=== PATIENT | female | born 1995 | race Caucasian/White ===

== ENCOUNTER 2020-03-19 09:41 | Outpatient (CLI) | payer OTHER, SELFPAY ==
--- NOTE | ~2020-03-19 | US_ITS ---
EXAMINATION: US OB <=14 wk fetus w TV DATE: 03/19/2020 11:33 INDICATION: Encounter for . Positive test. TECHNIQUE: Real-time transabdominal and transvaginal obstetric ultrasound. FINDINGS: No prior studies for comparison. The uterus measures 5.8 x 4.1 x 5.4 cm. There is an intrauterine gestational sac, with pole francis ntified. The there is an intrauterine gestational sac measuring 0.22 cm corresponding to a 4 week 5 day gestation. No pole identified. Right ovary contains a 2.2 cm corpus luteal cyst. Left ovary is unremarkable. Small amount of free fluid in the pelvic cul-de-sac. IMPRESSION: 1. Intrauterine gestational sac corresponding to a 4 week 5 day gestation. pole not identified. Recommend follow-up with serial quantitative beta-hCG levels and ultrasound as clinically indicated. Reviewed, dictated and finalized at location A. IMPRESSION: 1. Intrauterine gestational sac corresponding to a 4 week 5 day gestation. Feta l pole not identified. Recommend follow-up with serial quantitative beta-hCG le vels and ultrasound as clinically indicated.
== END 2020-03-19 09:42 | disposition home or self-care (01) ==
PROVIDERS: PCP Nurse Practitioner Family; Visit Provider Nurse Practitioner Family
DX: Z32.01 Encounter for pregnancy test, result positive (principal)
CPT/HCPCS: 76801; 76817

== ENCOUNTER 2020-03-25 16:31 | Outpatient (CLI) | payer OTHER, SELFPAY | END 2020-03-25 16:32 | disposition home or self-care (01) | LOC: CHSLAB 16:32 | PROVIDERS: PCP Nurse Practitioner Family; Visit Provider Nurse Practitioner Family | DX: Z32.01 Encounter for pregnancy test, result positive (principal) | CPT/HCPCS: 36415; 84702 ==

== ENCOUNTER 2020-03-27 15:42 | Outpatient (CLI) | payer OTHER, SELFPAY | END 2020-03-27 15:43 | disposition home or self-care (01) | LOC: CHSLAB 15:45 | PROVIDERS: PCP Nurse Practitioner Family; Visit Provider Nurse Practitioner Family | DX: Z32.01 Encounter for pregnancy test, result positive (principal) | CPT/HCPCS: 36415; 84702 ==

== ENCOUNTER 2020-04-01 07:57 | Emergency (ER) | payer OTHER, SELFPAY ==
[2020-04-01 08:05] VITALS: BP 129/77; PULSE 82; RESP 20; O2SAT 98
--- NOTE | 2020-04-01 08:25 | ED.NAVMDI ---
HPI - Nausea/Vomiting/Diarrhea General Chief complaint: Nausea/Vomiting/Diarrhea Stated complaint: AND VOMITTING Time Seen by Provider: 04/01/20 08:25 Source: patient and RN notes reviewed Limitations: no limitations History of Present Illness MD elicited complaint: nausea and vomiting Onset (ago): day(s) (2) Description of vomiting: food contents Associated nausea: Yes Associated abdominal pain: No Relieving factors: none Context: other () Associated symptoms: denies other symptoms Related Data Allergies Allergy/AdvReac Type Severity Reaction Status Date / Time No Known Allergies Allergy Verified 03/18/20 11:40 Review of Systems Review of Systems: All systems reviewed & are unremarkable except as noted in HPI and below PMFSH Past Medical History Medical History ALBERTO (generalized anxiety disorder) Kidney stone 8 mm right nonobstructing stone Major depression, recurrent Obesity, Class I, BMI 30-34.9 Surgical History Surgical History deliv NOS-unsp Previous section (~07/2018) Family History Family History Mother Heart disease CHF Fibromyalgia Diabetes mellitus Peptic ulcer disease Social History Social History Smoking status: Never smoker Substance use: current Substance use type: marijuana Exam Const: General: healthy appearing, no acute distress and alert Nutritional Appearance: well nourished Orientation/consciousness: patient oriented x3 Other: Female nurse in room during examination. HENMT: Head: normal to inspection Ears: external ears normal Mouth: Yes moist mucous membranes Eyes: Pupils: Equal, round and reactive pupils present EOM: EOMs intact bilaterally Neck: Neck: normal visual inspection Resp: Effort & Inspection: normal respiratory effort Auscultation: clear to auscultation bilaterally Cardio: Rate: regular rate Rhythm: regular rhythm GI: GI Palp: Yes Soft to palpation and No Tenderness to palpation present (GI) Auscultation: normal bowel sounds Back/Spine/Pelvis: Cervical Spine: cervical ROM normal Thoracic/Lumbar Spine: thoraco-lumbar ROM normal Skin: General skin exam: normal color Rashes: no rashes Neuro: General: patient oriented x3 Speech: normal speech Gait exam (Neuro): Normal gait present Extrem: General: normal to inspection Psych: Appearance: grossly normal and well kempt Mental Status: mental status grossly normal Affect: normal affect Attitude: cooperative Thought content: Yes Normal thought content present Course Course Emergency Course: She feels better after her a L of normal saline. She is given some Zofran through her IV as well. Send her home on some oral Zofran p.r.n.. Follow up with her ux design lead. Vital Signs Vital signs: Vital Signs Pulse Rate 82 04/01/20 08:05 Respiratory Rate 20 04/01/20 08:05 Blood Pressure 129/77 04/01/20 08:05 Pulse Oximetry 98 04/01/20 08:05 Temperature 36.6 C 04/01/20 08:58 Pulse Rate 80 04/01/20 08:58 Respiratory Rate 20 04/01/20 08:58 Blood Pressure 129/77 04/01/20 08:58 Pulse Oximetry 98 04/01/20 08:58 MDM - Nausea/Vomiting/Diarrhea Differential Diagnosis Differential diagnosis: Likely food poisoning and gastroenteritis Medical Records Attestation: I reviewed the patient's medical records. Discharge Plan Discharge Clinical Impression: Hyperemesis arising during Patient Disposition: Home, Self-Care Condition: Stable Instructions: Nausea and Vomiting in (ED) Additional Instructions: Follow-up with your ux design lead in the next 3-5 days. Use Gatorade for all sport for rehydration. Small sips throughout the day. Prescriptions: New ondansetron HCl [Zofran] 4 mg tablet
[2020-04-01] MEDS: ONDANSETRON INJ 4 MG/2 ML VIAL IV PUSH (08:48)
[2020-04-01] MEDS: SODIUM CHLORIDE 0.9% IV 1,000 ML 999 ML IV CONT (08:48)
[2020-04-01 08:58] VITALS: BP 129/77; PULSE 80; RESP 20; TEMP 36.6; O2SAT 98
== END 2020-04-01 09:45 | disposition home or self-care (01) ==
PROVIDERS: Emergency Provider Emergency Medicine; PCP Nurse Practitioner Family
DX: R11.10 Vomiting, unspecified (principal)
CPT/HCPCS: 96361; 96374; 99283; 99284; J2405; J7030

== ENCOUNTER 2020-04-15 09:37 | Outpatient (CLI) | payer OTHER, SELFPAY ==
--- NOTE | ~2020-04-15 | US_ITS ---
EXAMINATION: US OB <=14 wk fetus w TV DATE: 04/15/2020 10:15 INDICATION: Establish dating and viability of during first trimester TECHNIQUE: Real-time pelvic ultrasound utilizing both a transvaginal and transabdominal probe was pe rformed. The interpreting radiologist was not present for the study. COMPARISON: 03/19/2020 FINDINGS: The uterus measures 10.9 x 7.6 x 5.4 cm. There is an intrauterine gestational sac. A yolk sac and fe james pole are identified. The crown rump length measures 1.7 cm, which correlates with an estimated ge stational age of 8 weeks and 1 days. heart motion is identified measuring 168 beats per minute (bpm) by M-mode Doppler.1.6 x 0.7 x 0.4 cm hypoechoic subchorionic hematoma along the posterior luci n of the gestational sac. There are couple small anechoic nabothian cysts at the cervix. The right ovary measures 4.2 x 2.3 x 1.9 cm. The left ovary measures 2.4 x 1.9 x 2.1 cm. Vascular marcelo w identified at both ovaries on color Doppler. There is no free fluid in the pelvis. IMPRESSION: 1. Single living fetus with heart rate of 160 bpm. 2. Gestational age by ultrasound of 8 weeks 1 day(s) +/- 5 day(s) with ultrasound estimated date of delivery (DESI) of 11/24/2020. 3. Small subchorionic hematoma. Reviewed, dictated and finalized at location A. IMPRESSION: 1. Single living fetus with heart rate of 160 bpm. 2. Gestational age by ultrasound of 8 weeks 1 day(s) +/- 5 day(s) with ultraso und estimated date of delivery (DESI) of 11/24/2020. 3. Small subchorionic hematoma.
== END 2020-04-15 09:38 | disposition home or self-care (01) ==
LOC: CHSIMG 09:38
PROVIDERS: PCP Nurse Practitioner Family; Visit Provider Obstetrics & Gynecology Gynecology
DX: Z36.87 Encounter for antenatal screening for uncertain dates (principal)
CPT/HCPCS: 76801; 76817

== ENCOUNTER 2020-05-04 06:21 | Emergency (ER) | payer OTHER, SELFPAY ==
[2020-05-04 06:35] VITALS: BP 143/82; PULSE 101; RESP 16; TEMP 36.7; O2SAT 100
--- NOTE | 2020-05-04 06:41 | ED.NAVMDI ---
HPI - Nausea/Vomiting/Diarrhea General Chief complaint: Nausea/Vomiting/Diarrhea Stated complaint: morning sickness Time Seen by Provider: 05/04/20 06:43 Source: patient Mode of arrival: ambulatory Limitations: no limitations History of Present Illness HPI Narrative: 25-year-old woman in her [place] the week of comes in today with vomiting. She states that this is her 2nd and she had similar symptoms during her 1st period she has been up until this weekend taking Zofran for her symptoms however she ran out. She states she has had no blood in her vomitus, fever, abdominal pain, spotting, discharge, dysuria, hematuria, headache. she states she has been unable to keep anything down for a day or 2. MD elicited complaint: nausea and vomiting Onset (ago): day(s) (2) Description of vomiting: food contents and watery Associated nausea: Yes Associated abdominal pain: No Exacerbating factors: eating Relieving factors: none Context: other ( ) Related Data Allergies Allergy/AdvReac Type Severity Reaction Status Date / Time No Known Allergies Allergy Verified 05/04/20 06:40 Review of Systems Constitutional: Constitutional: Denies chills, Denies fever(s) and Denies weakness Eyes: Eyes: Denies change in vision and Denies photophobia ENT: Denies dysphagia, Denies nasal congestion and Denies sore throat Cardiovascular: Cardiovascular: Denies chest pain and Denies radiating jaw, neck or arm pain Respiratory: Respiratory: Denies cough, Denies dyspnea and Denies wheezing Gastrointestinal: Gastrointestinal: Reports as per HPI, Denies abdominal pain, Denies diarrhea, Reports nausea and Reports vomiting Genitourinary: Genitourinary: Denies hematuria, Denies nocturia and Denies dysuria Musculoskeletal: Musculoskeletal: Denies back pain, Denies arthralgias and Denies joint swelling Integumentary/Breasts: Skin/Breast: Denies pruritus, Denies erythema and Denies rash Neurologic: Denies vertigo, Denies dizziness and Denies syncope Endocrine: Endocrine: Reports polydipsia and Denies polyuria Hematologic/Lymphatic: Hematologic/Lymphatic: Denies easy bleeding and Denies easy bruising Allergic/Immunologic: Allergic/Immunologic: Denies lip swelling and Denies wheezing PMFSH Past Medical History Medical History ALBERTO (generalized anxiety disorder) Kidney stone 8 mm right nonobstructing stone Major depression, recurrent Obesity, Class I, BMI 30-34.9 Surgical History Surgical History deliv NOS-unsp Previous section (~07/2018) Social History Social History Smoking status: Never smoker Substance use: current Substance use type: marijuana Gender identity (if verbalized by the patient): Female Exam Const: General: healthy appearing and alert Orientation/consciousness: patient oriented x3 Limitations: no limitations Other: mild acute distress. HENMT: Head: normal to inspection Ears: external ears normal, TM's normal bilaterally and EAC's normal Face and sinus: normal facial exam Mouth: Yes moist mucous membranes Throat: posterior oropharynx normal and uvula midline Eyes: Cornea: corneas normal Pupils: Equal, round and reactive pupils present EOM: EOMs intact bilaterally Resp: Effort & Inspection: normal respiratory effort and not labored Auscultation: clear to auscultation bilaterally, no rales, no rhonchi and no wheezes Cardio: Rate: regular rate Rhythm: regular rhythm Heart sounds: no murmurs GI: Inspection: non-distended GI Palp: Yes Soft to palpation, No Tenderness to palpation present (GI), No Guarding due to palpation present (GI) and No Rigid due to palpation Skin: General skin exam: normal color, no jaundice and no pallor Rashes: no rashes Neuro: General: patient oriented x3, moves all extremities
--- NOTE | 2020-05-04 07:37 | PC.NURSE ---
unable to scan iv fluid bag. bar code unreadable. 1000ml NS IV started at 0700 to right hand IV site. 1000ml infused at 0740.
--- NOTE | 2020-05-04 07:39 | PC.NURSE ---
no emesis since zofran administered. pt denies nausea at this time.
[2020-05-04 07:40] VITALS: BP 138/88; PULSE 96; RESP 16; TEMP 36.6; O2SAT 100
--- NOTE | 2020-05-04 07:41 | PC.NURSE ---
FHT - 136, strong and regular, obtained at right sup pub region
== END 2020-05-04 07:42 | disposition home or self-care (01) ==
PROVIDERS: Emergency Provider Emergency Medicine; PCP Family Medicine
DX: O21.0 Mild hyperemesis gravidarum (principal)
CPT/HCPCS: 99283

== ENCOUNTER 2020-05-05 21:14 | Emergency (ER) | payer OTHER, SELFPAY ==
[2020-05-05 21:20] VITALS: BP 136/84; PULSE 84; RESP 16; TEMP 36.9; O2SAT 98
--- NOTE | 2020-05-05 21:38 | ED.NAVMDI ---
HPI - Nausea/Vomiting/Diarrhea General Chief complaint: Nausea/Vomiting/Diarrhea Stated complaint: throwing up Time Seen by Provider: 05/05/20 21:30 Source: patient Mode of arrival: ambulatory Limitations: no limitations History of Present Illness HPI Narrative: 25-year-old woman and her 11 week comes in today complaining of vomiting. Patient states that after she was seen here yesterday morning, she was able to go all day without vomiting. She had some vomiting last night and this morning. She had no vomiting all day until this evening when she had 10 episodes. She states she has felt fevers. She denies vaginal discharge, dysuria, hematuria, headache, stiff neck, rash, diarrhea, abdominal pain or bleeding. She is on lifting restriction due to subchorionic hematoma. She states she had vomiting during her last but was not nearly as bad. MD elicited complaint: nausea, vomiting, diarrhea, abdominal pain and flank pain Onset (ago): day(s) Description of vomiting: food contents and watery Associated nausea: Yes Associated abdominal pain: No Exacerbating factors: eating Relieving factors: none Associated symptoms: fever/chills Treatment prior to arrival: other ( Zofran) Related Data Allergies Allergy/AdvReac Type Severity Reaction Status Date / Time No Known Allergies Allergy Verified 05/04/20 06:40 Review of Systems Constitutional: Constitutional: Reports chills and Reports fever(s) Eyes: Eyes: Denies change in vision and Denies photophobia ENT: Denies dysphagia, Denies nasal congestion and Denies sore throat Cardiovascular: Cardiovascular: Denies chest pain and Denies radiating jaw, neck or arm pain Respiratory: Respiratory: Denies cough, Denies dyspnea and Denies wheezing Gastrointestinal: Gastrointestinal: Denies abdominal pain, Denies diarrhea, Reports nausea and Reports vomiting Genitourinary: Genitourinary: Denies hematuria, Denies nocturia, Denies dysuria and Denies urinary incontinence Musculoskeletal: Musculoskeletal: Denies back pain, Denies arthralgias and Denies joint swelling Integumentary/Breasts: Skin/Breast: Denies pruritus, Denies erythema and Denies rash Neurologic: Denies vertigo, Denies dizziness and Denies syncope Hematologic/Lymphatic: Hematologic/Lymphatic: Denies easy bleeding and Denies easy bruising Allergic/Immunologic: Allergic/Immunologic: Denies lip swelling and Denies wheezing PMFSH Social History Social History Smoking status: Never smoker Substance use: current Substance use type: marijuana Gender identity (if verbalized by the patient): Female Exam Const: General: healthy appearing, no acute distress and alert Orientation/consciousness: patient oriented x3 Limitations: no limitations HENMT: Mouth: Yes moist mucous membranes Throat: posterior oropharynx normal Eyes: Cornea: corneas normal EOM: EOMs intact bilaterally Resp: Effort & Inspection: normal respiratory effort and not labored Auscultation: clear to auscultation bilaterally, no rales, no rhonchi and no wheezes Cardio: Rate: regular rate Rhythm: regular rhythm Heart sounds: no murmurs GI: Inspection: non-distended GI Palp: No Tenderness to palpation present (GI), No Guarding due to palpation present (GI), No Rigid due to palpation and No Palpable mass present Skin: General skin exam: normal color, no jaundice and no pallor Rashes: no rashes Neuro: General: patient oriented x3, moves all extremities, no focal motor deficits and CN's II-XI intact bilaterally Speech: normal speech Gait exam (Neuro): Normal gait present Extrem: General: normal to inspection and no clubbing, cyanosis or edema Psych: Appearance: grossly normal and well kempt Mental Status: mental status grossly normal Affect: normal affect Attitude: cooperative Thought content: Yes Normal thought content present Course Vital Signs Vital signs: Vital Si
[2020-05-05 21:48] LABS: Basophils Absolute Auto 0.03 K/mm3 (0.00-0.10); Basophils Percent Auto 0.2 % (0.0-1.0); Eosinophils Absolute Auto 0.09 K/mm3 (0.02-0.50); Eosinophils Percent Auto 0.7 % (1.0-6.0); Hematocrit 37.5 % (35.0-49.0); Hemoglobin 12.7 g/dL (12.0-15.0); Immature Granulocyte Absolute 0.05 K/mm3 (0.00-0.00); Immature Granulocyte Percent A 0.4 % (0.0-0.0); Lymphocytes Absolute Auto 2.35 K/mm3 (1.10-4.50); Lymphocytes Percent Auto 19.4 % (18.0-42.0); Mean Corpuscular HGB Conc 33.9 g/dL (32.0-36.0); Mean Corpuscular Hemoglobin 29.1 pg (27.0-31.0); Mean Corpuscular Volume 85.8 fL (78.0-102.0); Mean Platelet Volume 9.5 fl (9.2-11.8); Monocytes Absolute Auto 0.62 K/mm3 (0.10-0.90); Monocytes Percent Auto 5.1 % (2.0-11.0); Neutrophils Percent Auto 74.2 % (50.0-70.0); Platelet Count Result 426 K/mm3 (150-420); Red Blood Count 4.37 M/mm3 (4.20-5.40); Red Cell Distribution Width 13.7 % (11.6-14.4); White Blood Count 12.1 K/mm3 (4.8-10.8)
[2020-05-05 22:00] LABS: Add Urine Microscopic? YES; Appearance Urine Clear (Clear); Bilirubin Urine 2+ (Negative); Blood Urine Negative (Negative); Color Urine Yellow (Yellow); Glucose Urine UA Negative (Negative); Ketones Urine 3+ (Negative); Leukocyte Esterase Ur Negative (Negative); Nitrate Urine Negative (Negative); Protein Urine 1+ (Negative); Specific Grav Ur >= 1.030 (1.010-1.020)
[2020-05-05 22:03] LABS: Alanine Aminotransferase 28 U/L (14-59); Albumin Level 3.4 g/dL (3.4-5.0); Alkaline Phosphatase 86 U/L (46-116); Anion Gap 15.3 mmol/L (7-16); Aspartate Amino Transferase 28 U/L (15-37); Bilirubin,Total 0.5 mg/dL (0.00-1.00); Blood Urea Nitrogen 7 mg/dL (7-18); Calcium 9.4 mg/dL (8.5-10.1); Carbon Dioxide 25 mmol/L (21-32); Chloride 98 mmol/L (98-108); Estimated Glomerular Filt Rate > 60; Glucose 102 mg/dL (70-99); Osmolality Calculated 278 mOsm/kg (285-295); Potassium 3.3 mmol/L (3.5-5.1); Sodium 135 mmol/L (136-145); Total Protein 8.5 g/dL (6.4-8.2)
[2020-05-05 22:06] LABS: Amphetamine Screen Urine Negative (Negative); Barbiturate Screen Urine Negative (Negative); Benzodiazepines Screen Urine Negative (Negative); Cannabinoid Screen Urine Positive (Negative); Cocaine Screen Urine Negative (Negative); Methadone Screen Urine Negative (Negative); Opiate Screen Urine Negative (Negative); Phencyclidine Screen Urine Negative (Negative)
[2020-05-05 22:12] LABS: Squamous Epithelial Cell Urine Few /hpf (Few)
[2020-05-05 22:13] LABS: Bacteria Urine 2+ /hpf; Mucus Urine Moderate /lpf
[2020-05-05] MEDS: PROMETHAZINE HCL 25 MG/ML AMPUL IM (22:29)
[2020-05-05] MEDS: SODIUM CHLORIDE 0.9% IV 1,000 ML 999 ML IV CONT ×2 (22:29→23:37)
[2020-05-05] MEDS: ONDANSETRON INJ 4 MG/2 ML VIAL IV PUSH (23:37)
[2020-05-06 00:45] VITALS: BP 101/60
== END 2020-05-06 00:45 | disposition home or self-care (01) ==
PROVIDERS: Emergency Provider Emergency Medicine; PCP Family Medicine
DX: R82.81 Pyuria (principal); R11.2 Nausea with vomiting, unspecified
CPT/HCPCS: 36415; 80053; 80307; 81001; 85025; 96361; 96372; 96374; 99283; 99284; J2405; J2550; J7030

== ENCOUNTER 2020-05-08 07:56 | Outpatient (CLI) | payer OTHER, SELFPAY ==
--- NOTE | ~2020-05-08 | US_ITS ---
EXAMINATION: US OB <= 14 weeks fetus DATE: 05/08/2020 09:58 INDICATION: Subchorionic hemorrhage, first trimester TECHNIQUE: Real-time pelvic transabdominal and transvaginal ultrasound was performed. COMPARISON: 04/15/2020 FINDINGS: The uterus measures 11.1 x 6.5 x 7.8 cm. There is an intrauterine gestational sac. No pers istent subchorionic hemorrhage is identified. A yolk sac is identified. heart motion is identif ied measuring 167 beats per minute (bpm) by M-mode Doppler. The crown rump length measures 4.9 cm , which correlates with an estimated gestational age of 11 weeks and 5 day(s) (+/-) 7 day(s). The right ovary measures 2.5 x 1.7 x 3.2 cm. The left ovary measures 2.7 x 2.1 x 1.9 cm. There is nor mal vascular flow in the ovaries. There is no free fluid in the pelvis. IMPRESSION: 1. Live intrauterine with an estimated gestational age of 11 weeks and 5 day(s) (+/-) 7 day (s) and an estimated delivery date of 11/22/2020. 2. No persistent subchorionic hemorrhage identified. Reviewed, dictated and finalized at location B. IMPRESSION: 1. Live intrauterine with an estimated gestational age of 11 weeks an d 5 day(s) (+/-) 7 day(s) and an estimated delivery date of 11/22/2020. 2. No persistent subchorionic hemorrhage identified.
== END 2020-05-08 07:57 | disposition home or self-care (01) ==
LOC: CHSIMG 07:58
PROVIDERS: PCP Family Medicine; Visit Provider Obstetrics & Gynecology Gynecology
DX: O36.8910 Maternal care for other specified fetal problems, first trimester, not applicable or unspecified (principal)
CPT/HCPCS: 76801

== ENCOUNTER 2020-05-26 16:42 | Emergency (ER) | payer OTHER, SELFPAY ==
[2020-05-26 16:45] VITALS: BP 131/79; PULSE 107; RESP 14; TEMP 36.7; O2SAT 97
[2020-05-26 17:00] VITALS: BP 134/80; PULSE 117; RESP 15; O2SAT 97
--- NOTE | 2020-05-26 17:01 | ED.NAVMDI ---
HPI - Nausea/Vomiting/Diarrhea General Chief complaint: Nausea/Vomiting/Diarrhea Stated complaint: vomiting Time Seen by Provider: 05/26/20 17:01 Source: patient Mode of arrival: ambulatory Limitations: no limitations History of Present Illness HPI Narrative: 25-year-old woman who was in her 14th week of comes in today complaining of persistent vomiting since early this morning. Patient has had persistent vomiting through 1st trimester of her . She has been controlled on Phenergan until today but she has been unable to take the Phenergan today due to the vomiting. She denies any dysuria, hematuria, vaginal discharge, vaginal bleeding, fever, cough or cold symptoms, lightheadedness, or abdominal pain. She was diagnosed early in her with a subchorionic hemorrhage however an ultrasound on 05/08/2020 did not show this abnormality. MD elicited complaint: nausea and vomiting Onset (ago): month(s) Description of vomiting: food contents and watery Associated nausea: Yes Associated abdominal pain: No Exacerbating factors: eating Relieving factors: none Context: recent antibiotic use and other ( ) Associated symptoms: nausea/vomiting Related Data Allergies Allergy/AdvReac Type Severity Reaction Status Date / Time No Known Allergies Allergy Verified 05/20/20 09:27 Review of Systems Constitutional: Constitutional: Denies chills and Denies fever(s) Eyes: Eyes: Denies change in vision and Denies photophobia ENT: Denies dysphagia, Denies nasal congestion and Denies sore throat Cardiovascular: Cardiovascular: Denies chest pain and Denies radiating jaw, neck or arm pain Respiratory: Respiratory: Denies cough and Denies dyspnea Gastrointestinal: Gastrointestinal: Reports as per HPI, Denies abdominal pain and Denies diarrhea Genitourinary: Genitourinary: Denies abnormal vaginal bleeding, Denies hematuria, Denies nocturia, Denies dysuria, Denies flank pain and Denies vaginal discharge Musculoskeletal: Musculoskeletal: Denies arthralgias and Denies joint swelling Integumentary/Breasts: Skin/Breast: Denies pruritus, Denies erythema and Denies rash Neurologic: Denies vertigo, Denies dizziness and Denies syncope Endocrine: Endocrine: Denies polydipsia and Denies polyuria Hematologic/Lymphatic: Hematologic/Lymphatic: Denies easy bleeding and Denies easy bruising Allergic/Immunologic: Allergic/Immunologic: Denies lip swelling, Denies throat swelling and Denies tongue swelling COUNT INCLUDES THE [facility] Past Medical History Medical History ALBERTO (generalized anxiety disorder) Kidney stone 8 mm right nonobstructing stone Major depression, recurrent Obesity, Class I, BMI 30-34.9 Surgical History Surgical History deliv NOS-unsp Previous section (~07/2018) Social History Social History Smoking status: Never smoker Substance use: current Substance use type: marijuana Gender identity (if verbalized by the patient): Female Exam Const: General: healthy appearing, no acute distress and alert Nutritional Appearance: obese Orientation/consciousness: patient oriented x3 Limitations: no limitations HENMT: Head: normal to inspection Ears: external ears normal, TM's normal bilaterally and EAC's normal Face and sinus: normal facial exam Mouth: Yes moist mucous membranes Throat: posterior oropharynx normal Eyes: Cornea: corneas normal Pupils: Equal, round and reactive pupils present EOM: EOMs intact bilaterally Resp: Effort & Inspection: normal respiratory effort and not labored Auscultation: clear to auscultation bilaterally, no rales, no rhonchi and no wheezes Cardio: Rate: regular rate Rhythm: regular rhythm Heart sounds: no murmurs GI: Inspection: non-distended GI Palp: Yes Soft to palpation, No Tenderness to palpati
[2020-05-26] MEDS: PROMETHAZINE HCL 25 MG/ML AMPUL IM (17:18)
[2020-05-26] MEDS: SODIUM CHLORIDE 0.9% IV 1,000 ML 999 ML IV CONT (17:20)
[2020-05-26 17:24] LABS: Add Urine Microscopic? YES; Appearance Urine Clear (Clear); Bilirubin Urine Negative (Negative); Blood Urine Negative (Negative); Color Urine Yellow (Yellow); Glucose Urine UA Negative (Negative); Ketones Urine 3+ (Negative); Leukocyte Esterase Ur Negative (Negative); Nitrate Urine Negative (Negative); Protein Urine Trace (Negative); Specific Grav Ur 1.025 (1.010-1.020); Urobilinogen Urine 0.2 mg/dL (0.2-1.0)
[2020-05-26 17:30] VITALS: BP 138/74; PULSE 99; RESP 15; O2SAT 98
[2020-05-26 17:31] LABS: Bacteria Urine Trace /hpf; RBC Urine None seen /hpf (0-2); Squamous Epithelial Cell Urine Few /hpf (Few); WBC Urine None seen /hpf (0-3)
[2020-05-26 17:32] LABS: Anion Gap 14 mmol/L (8-16); Blood Urea Nitrogen 6 mg/dL (7-18); Calcium 9.2 mg/dL (8.5-10.1); Carbon Dioxide 21 mmol/L (21-32); Chloride 102 mmol/L (98-108); Estimated CRCL calculation 135 ml/min; Estimated Glomerular Filt Rate > 60; Glucose 105 mg/dL (70-99); Osmolality Calculated 281 mOsm/kg (285-295); Potassium 3.3 mmol/L (3.5-5.1); Sodium 137 mmol/L (136-145)
[2020-05-26 18:00] VITALS: BP 127/76
[2020-05-26] MEDS: ONDANSETRON INJ 4 MG/2 ML VIAL IV PUSH (18:14)
[2020-05-26 18:30] VITALS: BP 120/74; PULSE 91; RESP 15; O2SAT 96
[2020-05-26 18:45] VITALS: BP 132/78; PULSE 93; RESP 14; TEMP 36.6; O2SAT 97
== END 2020-05-26 19:01 | disposition home or self-care (01) ==
PROVIDERS: Emergency Provider Emergency Medicine; PCP Family Medicine
DX: O21.0 Mild hyperemesis gravidarum (principal); E86.0 Dehydration; E87.6 Hypokalemia
CPT/HCPCS: 36415; 80048; 81001; 96361; 96372; 96374; 99283; 99284; J2405; J2550; J7030

== ENCOUNTER 2020-06-18 12:17 | Emergency (ER) | payer OTHER, SELFPAY ==
[2020-06-18 12:40] VITALS: BP 109/71; PULSE 99; RESP 17; TEMP 36.8; O2SAT 98
[2020-06-18] MEDS: SODIUM CHLORIDE 0.9% IV 1,000 ML 999 ML (13:00)
--- NOTE | 2020-06-18 13:10 | ED.GENADULT ---
HPI - General Adult General Chief complaint: Nausea/Vomiting/Diarrhea Stated complaint: and cant stop puking Time Seen by Provider: 06/18/20 12:20 Source: patient Mode of arrival: ambulatory Limitations: no limitations History of Present Illness HPI narrative: 25-year-old female presents she is 17 weeks and has a history of hyperemesis gravidarum currently has some Zofran at home, but presents with some increased nausea and episodes of vomiting. There is no abdominal pain no fever chills no cough no diarrhea constipation no shortness of breath or no chest pain. Onset (ago): day(s) Severity: mild Relieving factors: none Exacerbating factors: none Associated symptoms: nausea/vomiting Related Data Allergies Allergy/AdvReac Type Severity Reaction Status Date / Time No Known Allergies Allergy Verified 05/20/20 09:27 Review of Systems Review of Systems: All systems reviewed & are unremarkable except as noted in HPI and below PMFSH Past Medical History Medical History ALBERTO (generalized anxiety disorder) Kidney stone 8 mm right nonobstructing stone Major depression, recurrent Obesity, Class I, BMI 30-34.9 Surgical History Surgical History deliv NOS-unsp Previous section (~07/2018) Family History Family History Mother Heart disease CHF Fibromyalgia Diabetes mellitus Peptic ulcer disease Social History Social History Smoking status: Never smoker Substance use: current Substance use type: marijuana Gender identity (if verbalized by the patient): Female Exam Const: General: no acute distress HENMT: Head: normal to inspection Eyes: Conjunctivae: conjunctivae normal Pupils: Equal, round and reactive pupils present EOM: EOMs intact bilaterally Neck: Neck: normal visual inspection, no lymphadenopathy and no meningeal signs Chest: Chest palpation & inspection: normal inspection of the chest Cardio: Rate: regular rate Rhythm: regular rhythm GI: GI Palp: Yes Soft to palpation Urinary Catheter: Urinary Catheter: patent and draining Back/Spine/Pelvis: Back: no CVA tenderness Skin: General skin exam: normal color Neuro: General: patient oriented x3, moves all extremities, no meningeal signs and no focal motor deficits Psych: Mental Status: mental status grossly normal Course Course Emergency Course: Patient receiving IV fluids and IV Zofran. Critical Care Time Critical Care Time Critical Care Time: No Discharge Plan Discharge Clinical Impression: Hyperemesis gravidarum Patient Disposition: Home, Self-Care Condition: Stable Instructions: Antibiotic Form, Hyperemesis Gravidarum (ED) Additional Instructions: take Zofran as needed, follow-up with OBGYN for further evaluation and treatment. Prescriptions: No Action promethazine 25 mg tablet 25 mg PO QID PRN (Reason: nausea and vomiting) Qty: 20 RF: 0 ondansetron HCl [Zofran] 4 mg tablet 4 mg PO Q6H PRN (Reason: nausea and vomiting) Qty: 30 RF: 0 promethazine 25 mg suppository 25 mg RECTAL Q6H PRN (Reason: nausea and vomiting) Qty: 12 RF: 0 potassium chloride 20 mEq tablet extended release 20 meq PO DAILY Qty: 10 RF: 0 ondansetron 4 mg tablet,disintegrating 4 mg PO Q6H PRN (Reason: nausea and vomiting) Qty: 7 RF: 0 sertraline 50 mg tablet 50 mg PO DAILY Qty: 30 RF: 2 amoxicillin 500 mg tablet 500 mg PO Q12H Qty: 14 RF: 0 triamcinolone acetonide 0.1 % cream 1 applic TOPICAL BID Qty: 15 RF: 0 PNV 81-sod iron edta,[id number] 27-1-430 mg combo pack,tablet and cap,DR 1 dosepack PO DAILY Qty: 90 RF: 2 Follow-up/Referrals: Deshawn Earl DO [Primary Care Provider] - Time of Disposition: 13:15
[2020-06-18] MEDS: ONDANSETRON INJ 4 MG/2 ML VIAL IV PUSH (13:20)
[2020-06-18 14:00] VITALS: BP 121/66
== END 2020-06-18 14:00 | disposition home or self-care (01) ==
PROVIDERS: Emergency Provider Emergency Medicine; PCP Family Medicine
DX: O21.0 Mild hyperemesis gravidarum (principal)
CPT/HCPCS: 96361; 96374; 99282; 99284; J2405; J7030

== ENCOUNTER 2020-06-24 10:23 | Outpatient (CLI) | payer OTHER, SELFPAY ==
--- NOTE | ~2020-06-24 | US_ITS ---
EXAMINATION: US OB /maternal detail DATE: 06/24/2020 11:39 INDICATION: anatomic survey. TECHNIQUE: Real-time ultrasound of the pelvis was performed. COMPARISON: Ultrasound 05/08/2020, 04/15/2020, 03/19/2020 FINDINGS: There is a single living fetus in transverse lie. The placenta is anterior and covers the internal c ervical os. heart rate is 163 beats per minute (bpm). The amniotic fluid volume is subjectively normal. The following biometric data were obtained: Biparietal diameter (BPD): 4.1 cm; head circumference (HC): 15.5 cm; abdominal circumference (AC): 14 .2 cm; femur length (FL): 2.8 cm. These measurements are concordant. Estimated weight is 271 g +/- 41 g, which correlates with 92nd percentile when 11/24/20 is used as estimated date of delivery. As single measurements, these parameters are each equal to the following estimated gestational ages: BPD: 18 weeks 3 days. HC: 18 weeks 3 days. AC: 19 weeks 4 days. FL: 18 weeks 5 days. estimated gestational age based solely on measurements from this exam is 18 weeks 6 days +/- 1 weeks 2 days. The cerebral ventricles, cerebellum, cisterna magna, nuchal fold, and visualized portions of the spin e are normal. The heart is suboptimally visualized, but is normal. The diaphragm, stomach, kidneys, a nd bladder are normal. There are two umbilical arteries to yield a 3-vessel cord. The cord insertion is normal. IMPRESSION: 1. Single living fetus in transverse lie. 2. Large for gestational age. Estimated weight is 271 g +/- 41 g, which correlates with 92nd pe rcentile when 11/24/20 is used as estimated date of delivery. This date was set by ultrasound on 0. 3. Normal anatomic survey. 4. Placenta previa. Follow-up ultrasound is recommended to confirm resolution. Reviewed, dictated and finalized at location A. IMPRESSION: 1. Single living fetus in transverse lie. 2. Large for gestational age. Estimated weight is 271 g +/- 41 g, which c orrelates with 92nd percentile when 11/24/20 is used as estimated date of delive ry. This date was set by ultrasound on 04/15/20. 3. Normal anatomic survey. 4. Placenta previa. Follow-up ultrasound is recommended to confirm resolution.
[2020-06-24 10:36] LABS: Basophils Absolute Auto 0.02 K/mm3 (0.00-0.10); Basophils Percent Auto 0.2 % (0.0-1.0); Eosinophils Absolute Auto 0.24 K/mm3 (0.02-0.50); Hematocrit 33.1 % (35.0-49.0); Immature Granulocyte Absolute 0.06 K/mm3 (0.00-0.00); Immature Granulocyte Percent A 0.5 % (0.0-0.0); Lymphocytes Absolute Auto 2.46 K/mm3 (1.10-4.50); Lymphocytes Percent Auto 20.7 % (18.0-42.0); Mean Corpuscular HGB Conc 33.2 g/dL (32.0-36.0); Mean Corpuscular Hemoglobin 29.3 pg (27.0-31.0); Mean Corpuscular Volume 88.3 fL (78.0-102.0); Mean Platelet Volume 9.5 fl (9.2-11.8); Monocytes Absolute Auto 0.59 K/mm3 (0.10-0.90); Neutrophils Absolute Auto 8.5 K/mm3 (1.7-7.2); Neutrophils Percent Auto 71.6 % (50.0-70.0); Platelet Count Result 395 K/mm3 (150-420); Red Blood Count 3.75 M/mm3 (4.20-5.40); Red Cell Distribution Width 13.5 % (11.6-14.4); White Blood Count 11.9 K/mm3 (4.8-10.8)
[2020-06-24 10:45] LABS: Hemoglobin A1C 5.5 % (<5.7)
[2020-06-24 12:41] LABS: HIV 1 P24 AG Negative (Negative); HIV 1/2 AB Negative (Negative)
[2020-06-27 10:22] LABS: Vitamin D 25 Hydroxy 24 ng/mL (30-100)
[2020-06-27 19:46] LABS: RPR Screen Non-Reactive (Non-Reactive)
[2020-06-27 21:18] LABS: Hepatitis B Surface Antigen Nonreactive (Nonreactive)
[2020-06-28 15:42] LABS: Rubella IgG Antibody 8.13 Index (>=1.00)
== END 2020-06-24 10:24 | disposition home or self-care (01) ==
PROVIDERS: PCP Family Medicine; Visit Provider Obstetrics & Gynecology Gynecology
DX: Z36.9 Encounter for antenatal screening, unspecified (principal); Z36.87 Encounter for antenatal screening for uncertain dates
CPT/HCPCS: 36415; 76805; 82306; 83036; 85025; 86592; 86703; 86762; 86850; 86900; 86901

== ENCOUNTER 2020-07-28 10:26 | Outpatient (CLI) | payer OTHER, SELFPAY ==
--- NOTE | ~2020-07-28 | US_ITS ---
US OB limited 07/28/2020 11:46 Indication: Placenta previa Procedure: Real-time Limited obstetrical ultrasound Comparison: 06/24/2020 Findings: There is a single living intrauterine in breech presentation with heart rat e of 147 BPM. Placenta is anterior measuring 4.2 cm to the cervix. Amniotic fluid is subjectively nor mal. Impression: 1: Single living intrauterine in breech presentation. 2: Anterior placenta without previa. Placental margin measures 4.2 cm to the cervix. Reviewed, dictated and finalized at location B. Impression: 1: Single living intrauterine in breech presentation. 2: Anterior placenta without previa. Placental margin measures 4.2 cm to the ce rvix.
== END 2020-07-28 10:27 | disposition home or self-care (01) ==
LOC: CHSIMG 10:28
PROVIDERS: PCP Family Medicine; Visit Provider Obstetrics & Gynecology Gynecology
DX: O44.00 Complete placenta previa NOS or without hemorrhage, unspecified trimester (principal)
CPT/HCPCS: 76815

== ENCOUNTER 2020-09-01 09:06 | Outpatient (CLI) | payer OTHER, SELFPAY ==
--- NOTE | ~2020-09-01 | US_ITS ---
EXAMINATION: US OB follow up DATE: 09/01/2020 09:58 INDICATION: History of IUGR. TECHNIQUE: Real-time transabdominal obstetric ultrasound. FINDINGS: Comparison to multiple prior studies sequentially, with oldest reviewed study dated 2019. There is a single living fetus in breech presentation. The placenta is anterior without placenta pre via. Placental margin to the cervix is 5.55 cm. cardiac activity and movement is noted with a heart rate of 149 beats per minute. T he amniotic fluid volume is normal. LUIGI measures 13.7 cm. The following biometric data were obtained: BPD: 69mm corresponds to gestational age 27 weeks 6 days. Head circumference: 257mm corresponds to gestational age 28 weeks 0 days. Abdominal circumference: 235mm corresponds to gestational age 27 weeks 6 days. Femur length: 54mm corresponds to gestational age 28 weeks 3 days. Estimated weight: 1169grams +/- 175grams.] IMPRESSION: 1. Single living intrauterine in breech presentation with an estimated gestational age of 28 weeks 0 days by inititial ultrasound. Appropriate interval growth. 2. Normal placenta. Reviewed, dictated and finalized at location A. ELING PHLEBOTOMIST IMPRESSION: 1. Single living intrauterine in breech presentation with an estimat ed gestational age of 28 weeks 0 days by inititial ultrasound. Appropriate int erval growth. 2. Normal placenta.
[2020-09-01 10:27] LABS: Hematocrit 32.2 % (35.0-49.0); Hemoglobin 10.2 g/dL (12.0-15.0)
[2020-09-01 11:11] LABS: Glucose 1 Hour PP 50gm Dose 141 mg/dL (70-130)
[2020-09-01 11:27] LABS: HIV 1 P24 AG Negative (Negative); HIV 1/2 AB Negative (Negative)
[2020-09-05 11:56] LABS: Vitamin D 25 Hydroxy 23 ng/mL (30-100)
== END 2020-09-01 09:07 | disposition home or self-care (01) ==
LOC: CHSIMG 09:09
PROVIDERS: PCP Family Medicine; Visit Provider Obstetrics & Gynecology Gynecology
DX: Z34.93 Encounter for supervision of normal pregnancy, unspecified, third trimester (principal)
CPT/HCPCS: 36415; 76816; 82306; 82947; 85014; 85018; 86703

== ENCOUNTER 2020-09-18 09:33 | Outpatient (CLI) | payer OTHER, SELFPAY ==
[2020-09-18 13:53] LABS: Glucose 2 Hour Gest 124 mg/dL (<155)
[2020-09-18 13:53] LABS: Glucose 1 Hour Gest 175 mg/dL (70-130)
[2020-09-18 13:53] LABS: Glucose Fasting Gestational 94 mg/dL (>/=95)
[2020-09-18 13:54] LABS: Glucose 3 Hour Gest 101 mg/dL (>/=140)
== END 2020-09-18 09:34 | disposition home or self-care (01) ==
LOC: CHSLAB 09:34
PROVIDERS: PCP Family Medicine; Visit Provider Obstetrics & Gynecology Gynecology
DX: R73.09 Other abnormal glucose (principal)
CPT/HCPCS: 36415; 82951; 82952

== ENCOUNTER 2020-10-07 11:05 | Outpatient (CLI) | payer OTHER, SELFPAY ==
[2020-10-07 11:16] LABS: Hematocrit 32.2 % (35.0-49.0); Hemoglobin 10.4 g/dL (12.0-15.0)
== END 2020-10-07 11:06 | disposition home or self-care (01) ==
LOC: CHSLAB 11:07
PROVIDERS: PCP Family Medicine; Visit Provider Obstetrics & Gynecology Gynecology
DX: R79.9 Abnormal finding of blood chemistry, unspecified (principal)
CPT/HCPCS: 36415; 85014; 85018

== ENCOUNTER 2020-10-16 11:25 | Outpatient (RCR) | payer OTHER, SELFPAY ==
[2020-10-03 14:19] VITALS: BP 112/66; PULSE 98
--- NOTE | ~2020-10-16 | US_ITS ---
EXAMINATION: US OB BPP wo non-stress DATE: 10/16/2020 12:27 INDICATION: Nonreactive nonstress test. Third trimester. TECHNIQUE: Real-time pelvic ultrasound was performed. COMPARISON: Ultrasound 09/01/2020 FINDINGS: There is a single living fetus in vertex presentation. The placenta is anterior. heart rate is 139 beats per minute (bpm). Biophysical profile performed by the technologist: breathing (30 sec sustained breathing in 30 minutes): 2 out of 2 movement (3 gross body movements in 30 minutes): 2 out of 2 tone (one episode of wjpuwqb-ukfveqpmy-idixmzm limb movement): 2 out of 2 Amniotic fluid pocket (2 cm): 2 out of 2 Total score: 8 out of 8 IMPRESSION: 1. Single living fetus in vertex presentation. 2. Biophysical profile 8 out of 8. Reviewed, dictated and finalized at location A. TRIC ENGINE MECHANIC
--- NOTE | 2020-10-16 11:35 | PC.NURSE ---
Dr Bravo office called here and states no NST needed, just a BPP.
--- NOTE | 2020-10-16 12:33 | PC.NURSE ---
BPP 05/[address] Cordero, no need for repeat NST, NST was completed in office.
== END 2020-11-06 07:34 | disposition home or self-care (01) ==
LOC: ANHOBOP 11:25
PROVIDERS: PCP Family Medicine; Visit Provider Obstetrics & Gynecology Gynecology
DX: O24.419 Gestational diabetes mellitus in pregnancy, unspecified control (principal); Z3A.32 32 weeks gestation of pregnancy
CPT/HCPCS: 59025; 76819

== ENCOUNTER 2020-11-05 22:27 | Inpatient (IN) | payer OTHER, SELFPAY ==
[2020-11-05 22:41] VITALS: BP 127/89; PULSE 107
[2020-11-05 22:45] VITALS: BP 124/88; PULSE 99
[2020-11-05 22:48] VITALS: BMI 35.9
--- NOTE | 2020-11-05 22:48 | LDADM ---
This patient, Karyna Mcrae, was admitted to Labor/Delivery/Recovery 120 on 11/05/20 at 22:27. Plans for labor, pain management and were discussed with patient. Patient/family oriented to hospital policies and general routines including ID bracelet, bed and alarms, visiting hours, pain management, procedures, bathroom and other care routines, personal items, smoking policy, room service/diet and guest tray routines, infant security routines, and visiting hours. Patient/Family are encouraged to report perceived risks to care and to ask questions if they do not understand what they are told or what they should do. See OBIX for further documentation.
[2020-11-05] MEDS: LACTATED RINGERS 1,000 ML 999 ML IV CONT (23:15)
[2020-11-05 23:17] LABS: Glucose Point of Care 98 (65-105)
--- NOTE | 2020-11-05 23:19 | PM.IMHP ---
H&P: HPI History of Present Illness Date/Time: 11/05/20 23:19 Chief Complaint: water broke Narrative: Karyna Mcrae is a 25 year old female @ 37 weeks by Lmpp c/w ultrasound EDC of 11/25/20 complicated by prior csection and anemia. Patien also report history of marijuana use. Patient ruptured at 9pm meconium stained. Review of Systems Review of Systems: Narrative: occasional contractions PMFSH Past Medical History Medical History ALBERTO (generalized anxiety disorder) Kidney stone 8 mm right nonobstructing stone Major depression, recurrent Obesity, Class I, BMI 30-34.9 Surgical History Surgical History (Updated 11/05/20 @ 23:26 by Marcus Jose MD) deliv NOS-unsp H/O: Previous section (~07/2018) Family History Family History Mother Heart disease CHF Fibromyalgia Diabetes mellitus Peptic ulcer disease Social History Social History Smoking status: Never smoker Second hand tobacco smoke exposure: No Substance use: former Substance use type: marijuana Last use: 2 mos ago Gender identity (if verbalized by the patient): Female Spiritual care concerns: No Meds Home Medications and Allergies Home Medications Medication Instructions Recorded Confirmed Type ondansetron HCl [Zofran] 4 mg PO Q6H PRN #30 tablet 04/01/20 11/03/20 Rx 81-iron 27 mg-folic 1 1 dosepack PO DAILY #90 dosepack 04/14/20 11/03/20 Rx mg-omega3 430 mg tablet,capsule,del.rel sertraline 50 mg PO DAILY 10/31/20 11/03/20 History Allergies Allergy/AdvReac Type Severity Reaction Status Date / Time No Known Allergies Allergy Verified 10/30/20 10:22 Vital Signs Vital Signs - 24 hr 11/05/20 22:41 11/05/20 22:45 Pulse Rate 107 H 99 Blood Pressure 127/89 124/88 Exam Const: General: well developed Resp: Auscultation: clear to auscultation bilaterally Cardio: Rate: regular rate GI: Other: Gravid nontender pelvic exam defered. Assessment and Plan Assessment and plan (1) Anemia affecting : Code(s): O99.019 - Anemia complicating , unspecified trimester Status: Acute Assessment and Plan: s/p iron infusion weekly (2) H/O: : Code(s): Z98.891 - History of uterine scar from previous surgery Status: Acute Assessment and Plan: SROM to proceed with repeat csection. risk and benefits reviewed wit patient in detail. Patient agrees to proceed with surgery. (3) Obesity, Class I, BMI 30-34.9: Code(s): E66.9 - Obesity, unspecified Status: Acute
[2020-11-05 23:21] LABS: Basophils Percent Auto 0.1 % (0.2-1.2); Eosinophils Absolute Auto 0.2 K/mm3 (0-0.3); Eosinophils Percent Auto 1.8 % (0-4.4); Hematocrit 34.3 % (37.0-47.0); Hemoglobin 11.2 g/dL (12.0-15.0); Immature Granulocyte Absolute 0.09 K/mm3 (0.00-0.031); Immature Granulocyte Percent A 0.7 % (0-0.5); Lymphocytes Absolute Auto 2.52 K/mm3 (0.9-3.2); Lymphocytes Percent Auto 18.4 % (18.3-44.2); Mean Corpuscular HGB Conc 32.7 g/dl (32-36); Mean Corpuscular Volume 85.8 fl (80-100); Mean Platelet Volume 10.4 fl (7.4-10.4); Monocytes Percent Auto 7.1 % (2.6-8.5); Neutrophils Absolute Auto 9.9 K/mm3 (1.3-6.7); Neutrophils Percent Auto 71.9 % (45.5-73.1); Platelet Count Result 359 k/mm3 (150-375); Red Cell Distribution Width 15.9 % (11.5-14.5); White Blood Count 13.7 K/mm3 (4.5-10.0)
[2020-11-05] MEDS: ceFAZolin 2 GM/D5W 50 ML 2 GM/50 ML BAG IVPB (23:30)
[2020-11-05 23:52] LABS: Amphetamine Screen Urine Negative (Negative); Barbiturate Screen Urine Negative (Negative); Benzodiazepines Screen Urine Negative (Negative); Cannabinoid Screen Urine Positive (Negative); Cocaine Screen Urine Negative (Negative); Methadone Screen Urine Negative (Negative); Opiate Screen Urine Negative (Negative); Phencyclidine Screen Urine Negative (Negative)
[2020-11-06] VITALS (48 sets, daily range): BP systolic 101–134; BP diastolic 57–96; PULSE 60–114; RESP 15–20; TEMP 35.9–36.8; O2SAT 96–100
--- NOTE | 2020-11-06 00:46 | PM.OBPRVD ---
OB - Delivery Note Procedure Delivery date: 11/06/20 Procedure: Procedures Operation Date: 11/05/20 23:36 Actual Procedures Side Surgeon p Repeat Section Not Applicable Marcus Jose MD events: Gestational Diabetes Intrapartal events: None Delivery monitor: external FHT and external uterine Route of delivery: Quantitative Blood Loss (ml): 160 Anesthesia type: Spinal Disposition: PACU [place] Baby Date of : 11/06/20 Time of : 23:56 Weeks of gestation at delivery: 37 gender: Female Weight (pounds): 7 Weight (ounces): 2 presentation: vertex position: Left Occiput Anterior Placenta delivery description: Spontaneous cord vessel description: 3 Vessels and Clamped/Cut score one minute: 8 score five minutes: 9
[2020-11-06] MEDS: OXYTOCIN 30 UNITS/NS 500 ML 30 UNITS/500 ML BAG 125 UNITS IV CONT (00:57)
[2020-11-06] MEDS: diphenhydrAMINE HCl INJ 50 MG/ML VIAL 25 MG IV PUSH (02:15)
--- NOTE | 2020-11-06 02:52 | OBPPTRN ---
Patient transferred to post room #285 via stretcher with infant in crib. Support person present. Oriented to unit, room, information board, rooming in, admission packet and security measures. Patient verbalizes understanding.
[2020-11-06] MEDS: DOCUSATE SODIUM 100 MG CAPSULE PO (07:26)
--- NOTE | 2020-11-06 09:14 | WPDANLDPN2 ---
Anes-Prog Note L&D Date/Time: 11/06/20 09:14 Comfortable throughout: section Neuraxial method: spinal Epidural/Spinal procedure site: clean & non-tender Neuro status: Neuro function grossly intact. Cardiovascular status: normal Respiratory status: normal Airway patency: baseline Mental status: baseline Post-Op hydration status: normal Vital Signs: Last Vital Signs Temp 36.8 C 11/06/20 03:00 Pulse 75 11/06/20 05:00 Resp 17 11/06/20 03:00 BP 101/57 L 11/06/20 05:00 Pulse Ox 98 11/06/20 02:35 Pain score (VAS): 0 I/O: Intake & Output 11/05/20 11/06/20 11/06/20 23:59 07:59 15:59 Intake Total 100 Output Total 533 Balance 100 -533 Post-procedural complaints: none Patient feedback: Patient satisfied with anesthetic care.
--- NOTE | 2020-11-06 09:15 | WPDANLDPN2 ---
Anes-Prog Note L&D Date/Time: 11/06/20 09:15 Comfortable throughout: section Neuraxial method: spinal Epidural/Spinal procedure site: clean & non-tender Neuro status: Neuro function grossly intact. Cardiovascular status: normal Respiratory status: normal Airway patency: baseline Mental status: baseline Post-Op hydration status: normal Vital Signs: Last Vital Signs Temp 36.8 C 11/06/20 03:00 Pulse 75 11/06/20 05:00 Resp 17 11/06/20 03:00 BP 101/57 L 11/06/20 05:00 Pulse Ox 98 11/06/20 02:35 Pain score (VAS): 0 I/O: Intake & Output 11/05/20 11/06/20 11/06/20 23:59 07:59 15:59 Intake Total 100 Output Total 533 Balance 100 -533 Post-procedural complaints: none Patient feedback: Patient satisfied with anesthetic care.
--- NOTE | 2020-11-06 09:16 | WPDANLDNPN2 ---
Anes-Prog Note L&D-Neuraxial Date/Time: 11/06/20 09:16 Neuraxial medications: intrathecal PF morphine Patient feedback: Patient satisfied with post-operative pain management.
[2020-11-06 09:32] LABS: Rapid Plasma Reagin Non-Reactive (NonReactive)
[2020-11-06] MEDS: SERTRALINE HCL 50 MG TABLET PO (10:48)
[2020-11-06] MEDS: HYDROcodone/acetaminophen (*CRX) 5-325 MG TABLET 1 TAB PO ×2 (10:49→19:55)
[2020-11-06] MEDS: IBUPROFEN 600 MG TABLET PO ×2 (10:49→19:55)
[2020-11-06] MEDS: LORATADINE 10 MG TABLET (15:13)
--- NOTE | 2020-11-06 22:11 | PM.PROC ---
Procedure Note - Detailed Date of procedure: 11/06/20 Pre-op diagnosis: Leaking PPrior Post-op diagnosis: other Procedure performed: RRepeat C-sectionWa Description of procedure: IPatient was taken to the prayer room if your credit normal sterile fashion. [place] schedule was made with the scapula carry down to the other Ln., Libby fashion. Especially decision was extended bilaterally with gilliland Sushila.TYour ass pic of incision was niyah with Quynhke and clamps and dissect it out the rectus muscle. If you?re aspect of decision was Domenico is in elevator up to wreck this message. Directions muscles were in the midline. Resonate with him to bluntly. the head delivered atraumatically and the remainder of detus delivered. the fetus handed to nurse and cord blood and gases obtained. the placenta delivered spontaneously and the uterus was exteriorized and cleared of clots and debri. the uterus closed with OMinocryl in a running locked fashion then imbricated with a second suture. uterus was returned to abdomen gutters cleared of clots and debri. the muscle were hemostatic fascia closed with o vicryl. subcutaneous tissue closed witbplain gut and skin closed with janice. Anesthesia: spinal Surgeon: Marcus Jose MD Estimated blood loss (mL): 160 Urine output (mL): 200 Drains: Yes Packing: No Pathology: yes Complications: None
--- NOTE | 2020-11-06 22:27 | P.PNOB_ITS ---
Pain Control Date/time seen: 11/06/20 22:27
--- NOTE | 2020-11-06 22:27 | PM.OBPNLAB ---
Pain Control Date/time seen: 11/06/20 22:27
--- NOTE | 2020-11-06 22:28 | PM.OBPNVD ---
OB - PN: Subj Subjective Date/time seen: 11/06/20 22:2 OB - PN: Obj Data Labs CBC & Chem 7: 11/05/20 23:11 Labs: Laboratory Results - last 24 hr 11/05/20 11/05/20 11/05/20 23:10 23:11 23:11 WBC 13.7 H RBC 4.00 L Hgb 11.2 L Hct 34.3 L MCV 85.8 MCH 28.0 MCHC 32.7 RDW 15.9 H Plt Count 359 MPV 10.4 Immature Gran % (Auto) 0.7 H Neut % (Auto) 71.9 Lymph % (Auto) 18.4 [place] % (Auto) 7.1 Eos % (Auto) 1.8 Baso % (Auto) 0.1 L Lymph # (Auto) 2.52 [place] # (Auto) 1.0 H Eos # (Auto) 0.2 Baso # (Auto) 0.0 Abs Immat Gran (auto) 0.09 H Absolute Neuts (auto) 9.9 H Absolute Nucleated RBC 0.0 Nucleated RBC % 0.0 POC Capillary Glucose 98 Urine Opiates Screen Urine Methadone Screen Ur Barbiturates Screen Ur Phencyclidine Scrn Ur Amphetamine Screen U Benzodiazepines Scrn Urine Cocaine Screen U Cannabinoids Screen RPR Non-reactive Blood Type Antibody Screen 11/05/20 11/05/20 23:11 23:11 WBC RBC Hgb Hct MCV MCH MCHC RDW Plt Count MPV Immature Gran % (Auto) Neut % (Auto) Lymph % (Auto) [place] % (Auto) Eos % (Auto) Baso % (Auto) Lymph # (Auto) [place] # (Auto) Eos # (Auto) Baso # (Auto) Abs Immat Gran (auto) Absolute Neuts (auto) Absolute Nucleated RBC Nucleated RBC % POC Capillary Glucose Urine Opiates Screen Negative Urine Methadone Screen Negative Ur Barbiturates Screen Negative Ur Phencyclidine Scrn Negative Ur Amphetamine Screen Negative U Benzodiazepines Scrn Negative Urine Cocaine Screen Negative U Cannabinoids Screen Positive A RPR Blood Type O Positive Antibody Screen Negative OB - PN A/P Time Spent With Patient Time: Total time spent is greater than 50% in coordination of care (as documented) at patient's floor/unit and/or counseling patient:
[2020-11-07] VITALS: BP 109/73; PULSE 71; RESP 16; TEMP 36.6; O2SAT 98
[2020-11-07] MEDS: HYDROcodone/acetaminophen (*CRX) 5-325 MG TABLET 1 TAB PO ×5 (00:58→20:09)
[2020-11-07] MEDS: IBUPROFEN 600 MG TABLET PO ×3 (04:23→20:08)
[2020-11-07 05:17] LABS: Basophils Percent Auto 0.3 % (0.2-1.2); Eosinophils Absolute Auto 0.2 K/mm3 (0-0.3); Eosinophils Percent Auto 1.4 % (0-4.4); Hematocrit 31.2 % (37.0-47.0); Immature Granulocyte Absolute 0.12 K/mm3 (0.00-0.031); Immature Granulocyte Percent A 0.8 % (0-0.5); Lymphocytes Absolute Auto 3.08 K/mm3 (0.9-3.2); Lymphocytes Percent Auto 20.1 % (18.3-44.2); Mean Corpuscular HGB Conc 32.1 g/dl (32-36); Mean Corpuscular Hemoglobin 27.2 pg (26-34); Mean Corpuscular Volume 84.8 fl (80-100); Monocytes Absolute Auto 0.8 K/mm3 (0.1-0.6); Monocytes Percent Auto 5.3 % (2.6-8.5); Neutrophils Absolute Auto 11.1 K/mm3 (1.3-6.7); Neutrophils Percent Auto 72.1 % (45.5-73.1); Platelet Count Result 333 k/mm3 (150-375); Red Blood Count 3.68 M/mm3 (4.2-5.4); Red Cell Distribution Width 15.9 % (11.5-14.5); White Blood Count 15.4 K/mm3 (4.5-10.0)
[2020-11-07 07:25] VITALS: BP 113/72; PULSE 83; RESP 16; TEMP 36.9
[2020-11-07] MEDS: SERTRALINE HCL 50 MG TABLET PO (07:25)
[2020-11-07] MEDS: DOCUSATE SODIUM 100 MG CAPSULE PO (07:25)
--- NOTE | 2020-11-07 10:20 | PM.OBPNVD ---
OB - PN: Subj Subjective Date/time seen: 11/07/20 10:20 Patient comments: no complaints and pain well controlled baby status: doing well OB - PN: Obj Data Labs CBC & Chem 7: 11/07/20 04:20 Labs: Laboratory Results - last 24 hr 11/07/20 04:20 WBC 15.4 H RBC 3.68 L Hgb 10.0 L Hct 31.2 L MCV 84.8 MCH 27.2 MCHC 32.1 RDW 15.9 H Plt Count 333 MPV 11.0 H Immature Gran % (Auto) 0.8 H Neut % (Auto) 72.1 Lymph % (Auto) 20.1 [place] % (Auto) 5.3 Eos % (Auto) 1.4 Baso % (Auto) 0.3 Lymph # (Auto) 3.08 [place] # (Auto) 0.8 H Eos # (Auto) 0.2 Baso # (Auto) 0.0 Abs Immat Gran (auto) 0.12 H Absolute Neuts (auto) 11.1 H Absolute Nucleated RBC 0.0 Nucleated RBC % 0.0 OB - PN A/P Plan day: 2 Plan: discharge home Comments: plans nancye for Time Spent With Patient Time: Total time spent is greater than 50% in coordination of care (as documented) at patient's floor/unit and/or counseling patient: Exam Narrative: Exam Narrative: inc c/d/i : Bimanual exam- vagina & uterus: other (Uterus firm, nt @U)
--- NOTE | 2020-11-07 11:13 | PC.NURSE ---
Talked to Angie from Care Coordination, she states that she called DCFS and reported that the patient was positive for THC and that baby had a meconium drug screen done and we are waiting for the results. Angie said per DCFS it is ok to discharge baby home with mom when mom is discharged.
--- NOTE | 2020-11-07 12:58 | PCCCNOTE ---
Care Coordination. Patient referred to CC for positive UDS for THC for pt. Meconium sent off for baby. Pt. reports using due to vomiting all throughout and that she feels so much better now that she has had baby. She denies any substance abuse history or that the marijuana use is an issue. Pt. reports having all necessary baby care items as she also has two year old at home. She reports going to get setup with [place]. She denies needs for community resources. She reports FOB, Carlosnel Jung, is involved and they will be going home together. She also reports having good family support including her mother to help additionally with new baby. Spoke with Priscilla at [facility] Hotline and she reports will take pt.' situation as information only (intake ID#[id number]). Pt's RN, Valentina, aware of above.
[2020-11-07 19:04] VITALS: BP 128/74; PULSE 84; RESP 16; TEMP 37.3
[2020-11-08] MEDS: IBUPROFEN 600 MG TABLET PO (03:44)
[2020-11-08] MEDS: HYDROcodone/acetaminophen (*CRX) 5-325 MG TABLET 1 TAB PO ×2 (03:45→09:05)
--- NOTE | 2020-11-08 03:47 | PC.NURSE ---
2200 on 11/08/2020 Patient viewed the discharge video Mother & Baby Care, The First Two Weeks . Patient was given the opportunity and encouraged to ask questions. Patient verbalized understanding of information shared and has been given the mother/baby guide for home reference.
[2020-11-08 08:15] VITALS: BP 129/80; PULSE 90; RESP 18; TEMP 37.2
[2020-11-08] MEDS: SERTRALINE HCL 50 MG TABLET PO (09:05)
[2020-11-08] MEDS: DOCUSATE SODIUM 100 MG CAPSULE PO (09:05)
[2020-11-08] MEDS: MULTIVIT/MIN/PREN/FOL AC/IRON TABLET 1 TAB PO (09:05)
--- NOTE | 2020-11-08 09:38 | PM.OBPNVD ---
OB - PN: Subj Subjective Date/time seen: 11/08/20 09:38 Interval history: had to stay for bili checks so dc cancelled yesterday Patient comments: no complaints, pain well controlled and other (minimal bleeding) baby status: doing well OB - PN: Obj Data Labs CBC & Chem 7: 11/07/20 04:20 OB - PN A/P Plan day: 3 Plan: routine care and discharge home Time Spent With Patient Time: Total time spent is greater than 50% in coordination of care (as documented) at patient's floor/unit and/or counseling patient: Exam Narrative: Exam Narrative: inc c/d/i : Bimanual exam- vagina & uterus: other (Uterus firm, nt @U)
[2020-11-09 09:56] VITALS: BP 127/75; PULSE 88; RESP 18; TEMP 36.9; O2SAT 98
--- NOTE | 2020-11-18 11:56 | PM.OBDSVD ---
DS: Admitting Diagnosis Admitting Diagnosis Admitting Diagnosis: SROM DS: Discharge Diagnosis Discharge Diagnosis (1) H/O: : Code(s): Z98.891 - History of uterine scar from previous surgery Status: Acute OB - DS: Summary OB Procedures : Ultrasound OB Procedures Intrapartum: OB Procedures: : None Peripartum Data Procedures: Procedures Operation Date: 11/05/20 23:36 Actual Procedures Side Surgeon p Repeat Section Not Applicable Marcus Jose MD Time Spent with Patient Time attestation: Total time spent providing and/or coordinating discharge services: DS: Data Data Completed and Pending Completed studies during hospitalization: Pending at discharge 11/05/20 23:59 Surgical [PTH] Routine Discharge Plan Discharge Attending physician on discharge: Marcus Jose Consulting providers: Evert Olson Discharging Clinician: Estephania Cordero Anticipated Discharge Date/Time: 11/07/20 10:21 Patient Disposition: Home, Self-Care Activity: may shower, may drive after 2 weeks and pelvic rest Diet: regular Wound Care Instructions: incision open to air Discharge Instructions: Education: Mom and Baby Guide Given to: Mother Follow-Up: Call your delivering provider's office for an appointment to be seen in: 1 Week Mom [facility] follow-up appointment. Appointment Date/Time: November 09, 2020 at 10:00 am What to expect at your follow-up visit: Physical Assessment Call [phone] if you are unable to keep your appointment time. BREAST CARE: * Wear a snug supportive bra. * For engorgement discomfort: Breast Feeding: * Apply warm moist washcloths * Express milk as needed to relieve engorgement * Wear loose clothing * For sore nipples: * Identify correct latch-on * Apply warm moist washcloths before and after nursing * Air dry nipples after nursing * May apply Lansinoh cream to nipples ABDOMINAL INCISION: * Allow incision to air dry * Do NOT use lotions for powders on your incision * When showering, allow soap and water to run over the incision, but do not wash incision PERINEAL CARE: * Until bleeding stops, use your reny bottle after urinating * Change your pad frequently throughout the day * No tub baths until seen by your physician - You may shower ACTIVITY: * Rest as much as possible. * Do not exercise or lift anything heavier than your baby (such as laundry or other children.) * Avoid stairs or driving as much as possible. * Do not put anything into the vagina. No douching, tampons, or sexual activity until seen by physician. NOTIFY PHYSICIAN IF YOU HAVE ANY QUESTIONS OR IF ANY OF THE FOLLOWING SYMPTOMS OCCUR: * If your incision becomes red, swollen, or more painful than what you have experienced in the hospital. * If your vaginal bleeding becomes foul smelling. * If your vaginal bleeding becomes more heavy than a period or if your bleeding changes from pink to bright red. However, you may pass an occasional walnut-sized clot once or twice for the first week . * If you experience a sharp, shooting pain in you calves. * If you discover a hard, reddened area on your breast or if you experience flu-like symptoms. DIET: * Eat regular, well-balanced meals. * Drink plenty of fluids daily. Patient Instructions: Antibiotic Form Stand Alone Forms: General Discharge Information Follow-up/Referrals: Estephania Cordero MD [Physician] - 1 Week (and 6 wk) Discharge Medications: New hydrocodone-acetaminophen 5-325 mg Tablet 1 tablet PO Q3H PRN (Reason: Moderate Pain (4-6)) Qty: 20 RF: 0 Xulane 150-35 mcg/24 hr patch weekly 1 patch transdermal WEEKLY Qty: 3 RF: 6 Continued sertraline 50 mg tablet 50 mg PO DAILY RF: 0 PNV 81-sod iron [id number] 27-1-430 mg combo pack,
== END 2020-11-08 12:45 | disposition home or self-care (01) | DRG 540 ==
LOC: ANHLDR 22:55 → ANHOB2 11-06 02:52
PROVIDERS: Admitting Provider Obstetrics & Gynecology; Visit Provider Obstetrics & Gynecology Gynecology
DX: O34.211 Maternal care for low transverse scar from previous cesarean delivery (principal); Z37.0 Single live birth; Z3A.37 37 weeks gestation of pregnancy; O24.429 Gestational diabetes mellitus in childbirth, unspecified control; O99.824 Streptococcus B carrier state complicating childbirth; O99.02 Anemia complicating childbirth; D64.9 Anemia, unspecified; O99.214 Obesity complicating childbirth; E66.9 Obesity, unspecified; O99.344 Other mental disorders complicating childbirth; F41.1 Generalized anxiety disorder; F32.9 Major depressive disorder, single episode, unspecified; O77.0 Labor and delivery complicated by meconium in amniotic fluid
CPT/HCPCS: 36415; 80307; 84112; 85025; 86592; 86850; 86900; 86901; 88307; A9270; J0131; J0690; J1200; J1885; J2274; J2370; J2405; J2590; J7120

== ENCOUNTER 2020-12-18 07:47 | Outpatient (CLI) | payer OTHER, SELFPAY ==
[2020-12-18 08:09] LABS: Glucose Fasting 94 mg/dL (70-99)
[2020-12-18 09:15] LABS: Glucose 1 Hour 128 mg/dL (<180)
[2020-12-18 10:17] LABS: Glucose 2 Hour 108 mg/dL (<155)
== END 2020-12-18 07:48 | disposition home or self-care (01) ==
LOC: CHSLAB 07:49
PROVIDERS: PCP Family Medicine; Visit Provider Obstetrics & Gynecology Gynecology
DX: O24.419 Gestational diabetes mellitus in pregnancy, unspecified control (principal)
CPT/HCPCS: 36415; 82951

== ENCOUNTER 2021-01-16 10:13 | Emergency (ER) | payer OTHER, SELFPAY ==
--- NOTE | ~2021-01-16 | XR_ITS ---
EXAMINATION: XR foot RT min 3V EXAM DATE: 01/16/2021 11:32 INDICATION: Pain, swelling, injury to right foot/4th toe. Initial encounter. TECHNIQUE: Right foot dorsoplantar, lateral and oblique projections obtained and reviewed. There is no prior study for comparison. FINDINGS: Right metatarsal bones unremarkable. There are no acute fractures or dislocations identifi ed. There is no subcutaneous gas. The soft tissue is unremarkable. There are no radiopaque foreig n bodies. IMPRESSION: 1. XR foot RT min 3V exam without acute osseous findings. Reviewed, dictated and finalized at location [facility].
[2021-01-16 11:19] VITALS: BP 117/83; PULSE 86; RESP 16; TEMP 36.4; O2SAT 97
--- NOTE | 2021-01-16 11:26 | ED.LOWEXIN ---
HPI - Extremity Injury (Lower) General Chief Complaint: Extremity Injury, Lower Stated Complaint: pain and bruising in last two toes on R foot Time Seen by Provider: 01/16/21 11:10 Source: patient Mode of arrival: ambulatory Limitations: no limitations History of Present Illness HPI Narrative: Patient comes in after stubbing her toe last pm. She has a 2 year old child, who has a small chair, and she stubbed her toe on the chair. Pain has been moderately severe, sharp, and ongoing since the injury. She did not notice it as much last pm, because she was drinking. Pain is most severe in 4th toe on right which she hit on the chair. Activity, walking tends to make the pain more severe. Accident happened at home. Related Data Home Medications Medication Instructions Recorded Confirmed sertraline [Zoloft] 75 mg PO DAILY 01/16/21 01/16/21 Allergies Allergy/AdvReac Type Severity Reaction Status Date / Time No Known Allergies Allergy Verified 10/30/20 10:22 Review of Systems Constitutional: Constitutional: Reports no additional constitutional complaints Eyes: Eyes: Reports no additional eye complaints ENT: Reports system reviewed and no additional complaints, except as documented Cardiovascular: Cardiovascular: Reports no additional cardiovascular complaints Respiratory: Respiratory: Reports no additional respiratory complaints Gastrointestinal: Gastrointestinal: Reports no additional gastrointestinal complaints Genitourinary: Genitourinary: Reports no additional female genitourinary complaints Musculoskeletal: Musculoskeletal: Reports no additional musculoskeletal complaints Integumentary/Breasts: Skin/Breast: Reports system reviewed and no additional complaints, except as docu Neurologic: Reports system reviewed and no additional complaints, except as documented Psychiatric: Psychiatric: Reports no additional psychiatric complaints Endocrine: Endocrine: Reports no additional endocrine complaints Hematologic/Lymphatic: Hematologic/Lymphatic: Reports no additional hematologic/lymphatic complaints Allergic/Immunologic: Allergic/Immunologic: Reports no additional allergic/immunologic complaints PMFSH Past Medical History Medical History ALBERTO (generalized anxiety disorder) Kidney stone 8 mm right nonobstructing stone Major depression, recurrent Obesity, Class I, BMI 30-34.9 Surgical History Surgical History deliv NOS-unsp H/O: Previous section (~07/2018) Family History Family History Mother Heart disease CHF Fibromyalgia Diabetes mellitus Peptic ulcer disease Social History Social History Smoking status: Never smoker Second hand tobacco smoke exposure: No Substance use: former Substance use type: marijuana Last use: 2 mos ago Gender identity (if verbalized by the patient): Female Spiritual care concerns: No Exam Const: General: no acute distress HENMT: Head: normal to inspection Ears: external ears normal General nose exam: Normal external nose present Mouth: Yes Normal oral and palatal mucosa present Eyes: Conjunctivae: conjunctivae normal Neck: Neck: normal visual inspection Chest: Chest palpation & inspection: normal inspection of the chest Resp: Effort & Inspection: normal respiratory effort Auscultation: clear to auscultation bilaterally Cardio: Rate: regular rate Rhythm: regular rhythm GI: GI Palp: Yes Soft to palpation (nontender) Skin: General skin exam: normal color Neuro: General: patient oriented x3 and moves all extremities Extrem: General: normal to inspection Psych: Appearance: grossly normal Mental Status: mental status grossly normal Thought content: Yes Normal thought content present Course Course Em
[2021-01-16] MEDS: KETOROLAC (*BKC) 60 MG/2 ML VIAL IM (11:31)
== END 2021-01-16 12:08 | disposition home or self-care (01) ==
PROVIDERS: Emergency Provider Emergency Medicine; PCP Family Medicine
DX: M79.674 Pain in right toe(s) (principal)
CPT/HCPCS: 73630; 96372; 99282; 99283; J1885

== ENCOUNTER 2021-01-18 13:34 | Outpatient (CLI) | payer OTHER, SELFPAY ==
--- NOTE | ~2021-01-18 | XR_ITS ---
XR toe 4th RT min 2V DATE: 01/18/2021 14:08 INDICATION: Fourth digit bruising and pain after kicking a chair 4 days ago TECHNIQUE: 3 views COMPARISON: None FINDINGS: No recent fracture or dislocation is evident. IMPRESSION: Negative Reviewed, dictated and finalized at location [facility]. IMPRESSION: Negative
== END 2021-01-18 13:35 | disposition home or self-care (01) ==
LOC: CHSIMG 13:36
PROVIDERS: PCP Nurse Practitioner Family; Visit Provider Nurse Practitioner Family
DX: M79.674 Pain in right toe(s) (principal)
CPT/HCPCS: 73660

== ENCOUNTER 2021-05-18 11:23 | Emergency (ER) | payer OTHER, SELFPAY ==
--- NOTE | ~2021-05-18 | CT_ITS ---
EXAMINATION: CT abdomen pelvis w con DATE: 05/18/2021 13:26 INDICATION: Epigastric abdominal pain, nausea, vomiting, diarrhea. History of stomach ulcers. TECHNIQUE: Computed tomography (CT) of the abdomen and pelvis was performed with 100 cc Omnipaque 350 intravenous contrast. Automated exposure control and iterative reconstruction technique were employe d. Exam dose: 756.97 mGy-cm total exam DLP. COMPARISON: None. FINDINGS: 5 mm lateral basilar left lower lobe pulmonary nodule. Mild bilateral dependent lower lobe atelectasis. Normal heart size. No pericardial or pleural effusion. There is a small sliding hiatal hernia. Diffuse hepatic steatosis. No hepatic, splenic, pancreatic, adrenal or renal space occupying mass le urban is detected. No bile duct or pancreatic duct dilatation. 6.6 x 8.2 mm nonobstructing upper pole right renal renal calculus (1470 Hounsfield units). No other u rinary tract calculus or hydroureteronephrosis. Normal caliber of the abdominal aorta. No intraperitoneal or retroperitoneal or pelvic mass lesion o r lymphadenopathy. Normal appendix. No bowel obstruction or intraperitoneal free air. Approximately 2 cm probable right ovarian cyst. The uterus and adnexal areas are otherwise unremarkab le. The urinary bladder appears normal. Small fat containing umbilical hernia. Included skeletal structures are unremarkable. IMPRESSION: Diffuse hepatic steatosis Small sliding hiatal hernia Nonobstructing upper pole right renal calculus Normal appendix 2 cm probable right ovarian cyst Reviewed, dictated and finalized at [facility]. Reviewed, dictated and finalized at location [facility].
[2021-05-18 11:40] VITALS: BP 133/76; PULSE 81; RESP 18; TEMP 37; O2SAT 98
[2021-05-18 12:10] LABS: Basophils Absolute Auto 0.04 K/mm3 (0.00-0.10); Basophils Percent Auto 0.3 % (0.0-1.0); Eosinophils Absolute Auto 0.21 K/mm3 (0.02-0.50); Eosinophils Percent Auto 1.6 % (1.0-6.0); Hematocrit 40.6 % (35.0-49.0); Hemoglobin 12.9 g/dL (12.0-15.0); Immature Granulocyte Absolute 0.06 K/mm3 (0.00-0.00); Immature Granulocyte Percent A 0.5 % (0.0-0.0); Lymphocytes Absolute Auto 2.05 K/mm3 (1.10-4.50); Lymphocytes Percent Auto 15.7 % (18.0-42.0); Mean Corpuscular HGB Conc 31.8 g/dL (32.0-36.0); Mean Corpuscular Hemoglobin 27.4 pg (27.0-31.0); Mean Corpuscular Volume 86.2 fL (78.0-102.0); Mean Platelet Volume 9.5 fl (9.2-11.8); Monocytes Absolute Auto 0.62 K/mm3 (0.10-0.90); Monocytes Percent Auto 4.8 % (2.0-11.0); Neutrophils Percent Auto 77.1 % (50.0-70.0); Platelet Count Result 408 K/mm3 (150-420); Red Blood Count 4.71 M/mm3 (4.20-5.40); Red Cell Distribution Width 14.5 % (11.6-14.4)
[2021-05-18 12:11] LABS: Add Urine Microscopic? NO; Appearance Urine Clear (Clear); Bilirubin Urine Negative (Negative); Blood Urine Negative (Negative); Color Urine Light Yellow (Yellow); Glucose Urine UA Negative (Negative); Ketones Urine Negative (Negative); Leukocyte Esterase Ur Negative LEU/UL (Negative); Nitrate Urine Negative (Negative); Protein Urine Negative (Negative); Specific Grav Ur 1.025 (1.010-1.020); Urobilinogen Urine 0.2 mg/dL (0.2-1.0)
[2021-05-18] MEDS: SODIUM CHLORIDE 0.9% IV 500 ML 999 ML IV CONT (12:11)
[2021-05-18] MEDS: PANTOPRAZOLE SODIUM IV 40 MG VIAL IV PUSH (12:12)
[2021-05-18] MEDS: ONDANSETRON INJ 4 MG/2 ML VIAL IV PUSH (12:15)
[2021-05-18] MEDS: MORPHINE SULFATE (*CRX) 2 MG/ML INJ IV PUSH (12:16)
--- NOTE | 2021-05-18 12:23 | ED.ABDPAIN ---
HPI - Abdominal Pain General Chief Complaint: Abdominal Pain Stated Complaint: abd pain Time Seen by Provider: 05/18/21 11:28 Source: patient and RN notes reviewed Mode of arrival: ambulatory Limitations: no limitations History of Present Illness MD elicited complaint: abdominal pain Pertinent past history: gastritis and other (stomach ulcer) Onset (ago): hour(s) (6) Pain Consistency: constant and colicky Location: epigastric Severity: mild Quality: cramping, aching and dull Radiation: none Migration to: no migration Exacerbating factors: nothing Relieving factors: nothing Associated symptoms: nausea Treatments prior to arrival: antacids Related Data Home Medications Medication Instructions Recorded Confirmed sertraline [Zoloft] 75 mg PO DAILY 01/16/21 05/18/21 Allergies Allergy/AdvReac Type Severity Reaction Status Date / Time No Known Allergies Allergy Verified 05/18/21 12:03 Review of Systems Review of Systems: All systems reviewed & are unremarkable except as noted in HPI and below Constitutional: Constitutional: Reports as per HPI and Reports no additional constitutional complaints Eyes: Eyes: Reports as per HPI and Reports no additional eye complaints ENT: Reports system reviewed and no additional complaints, except as documented and Reports as per HPI Cardiovascular: Cardiovascular: Reports as per HPI and Reports no additional cardiovascular complaints Respiratory: Respiratory: Reports as per HPI and Reports no additional respiratory complaints Gastrointestinal: Gastrointestinal: Reports as per HPI, Reports no additional gastrointestinal complaints, Reports abdominal pain and Reports nausea Genitourinary: Genitourinary: Reports no additional female genitourinary complaints and Reports as per HPI Musculoskeletal: Musculoskeletal: Reports no additional musculoskeletal complaints and Reports as per HPI Integumentary/Breasts: Skin/Breast: Reports system reviewed and no additional complaints, except as docu and Reports as per HPI Neurologic: Reports system reviewed and no additional complaints, except as documented and Reports as per HPI Psychiatric: Psychiatric: Reports no additional psychiatric complaints and Reports as per HPI Endocrine: Endocrine: Reports no additional endocrine complaints and Reports as per HPI Hematologic/Lymphatic: Hematologic/Lymphatic: Reports no additional hematologic/lymphatic complaints and Reports as per HPI Allergic/Immunologic: Allergic/Immunologic: Reports no additional allergic/immunologic complaints and Reports as per HPI PMFSH Past Medical History Medical History ALBERTO (generalized anxiety disorder) Kidney stone 8 mm right nonobstructing stone Major depression, recurrent Obesity, Class I, BMI 30-34.9 Surgical History Surgical History deliv NOS-unsp H/O: Previous section (~07/2018) Family History Family History Mother Heart disease CHF Fibromyalgia Diabetes mellitus Peptic ulcer disease Social History Social History Smoking status: Never smoker Second hand tobacco smoke exposure: No Substance use: former Substance use type: marijuana Last use: 2 mos ago Gender identity (if verbalized by the patient): Female Spiritual care concerns: No Exam Const: General: no acute distress and alert Nutritional Appearance: well nourished Orientation/consciousness: patient oriented x3 Limitations: no limitations and other limitations HENMT: Head: normal to inspection Ears: external ears normal and TM's normal bilaterally General nose exam: Normal external nose present and Normal nares present Mouth: Yes lip normal and Yes moist mucous membranes Teeth and gingiva: dentition normal Eyes:
[2021-05-18 12:25] LABS: Alanine Aminotransferase 29 U/L (14-59); Albumin Level 3.5 g/dL (3.4-5.0); Alkaline Phosphatase 95 U/L (46-116); Anion Gap 13 mmol/L (8-16); Aspartate Amino Transferase 26 U/L (15-37); Bilirubin,Total 0.1 mg/dL (0.00-1.00); Blood Urea Nitrogen 9 mg/dL (7-18); Calcium 8.9 mg/dL (8.5-10.1); Carbon Dioxide 25 mmol/L (21-32); Chloride 104 mmol/L (98-108); Estimated CRCL calculation 99 ml/min; Estimated Glomerular Filt Rate > 60; Glucose 100 mg/dL (70-99); Lipase 57 U/L (73-393); Osmolality Calculated 292 mOsm/kg (285-295); Potassium 4.2 mmol/L (3.5-5.1); Sodium 142 mmol/L (136-145)
[2021-05-18 12:31] LABS: Lactic Acid Reflex 2.1 mmol/L (0.4-2.0)
[2021-05-18 13:01] LABS: SPREG INTERNAL CONTROL Positive; Serum Qual hCG Negative
[2021-05-18 13:50] VITALS: BP 111/64; PULSE 69; RESP 16; O2SAT 98
[2021-05-18 15:06] LABS: Reflex Lactic Acid Yes or No Add Lactic
== END 2021-05-18 15:15 | disposition home or self-care (01) ==
PROVIDERS: Emergency Provider Emergency Medicine; PCP Family Medicine
DX: K29.00 Acute gastritis without bleeding (principal)
CPT/HCPCS: 36415; 74177; 80053; 81003; 83605; 83690; 84703; 85025; 96361; 96365; 96375; 99283; 99284; C9113; J0696; J2270; J2405; J7040; Q9967

== ENCOUNTER 2021-12-06 13:24 | Outpatient (CLI) | payer BC, MEDICAID, SELFPAY | END 2021-12-06 13:25 | disposition home or self-care (01) | LOC: CHSLAB 13:26 | PROVIDERS: PCP Family Medicine; Visit Provider Obstetrics & Gynecology | DX: O20.0 Threatened abortion (principal) | CPT/HCPCS: 36415; 84702 ==

== ENCOUNTER 2021-12-08 13:41 | Outpatient (CLI) | payer BC, MEDICAID, SELFPAY | END 2021-12-08 13:42 | disposition home or self-care (01) | LOC: CHSLAB 13:42 | PROVIDERS: PCP Family Medicine; Visit Provider Obstetrics & Gynecology | DX: O20.0 Threatened abortion (principal) | CPT/HCPCS: 36415; 84702 ==

== ENCOUNTER 2021-12-09 11:12 | Outpatient (CLI) | payer BC, MEDICAID, SELFPAY | END 2021-12-09 11:13 | disposition home or self-care (01) | LOC: CHSLAB 11:13 | PROVIDERS: PCP Obstetrics & Gynecology; Visit Provider Obstetrics & Gynecology | DX: O20.0 Threatened abortion (principal) | CPT/HCPCS: 36415; 84702 ==

== ENCOUNTER 2021-12-16 02:12 | Day surgery (SDC) | payer BC, MEDICAID, SELFPAY ==
[2021-12-14 15:53] VITALS: BMI 33.8
--- NOTE | 2021-12-14 16:00 | PC.NURSE ---
Report to the Outpatient Waiting Room, entrance under the green pavilion located off [facility], at time 1030 on date 12/16/21. OR Time: 1230. - You and your visitor will be asked a series of questions to screen for COVID 19 for your protection. - A mask is required within the hospital. One visitor will be allowed to accompany the patient into the hospital. Patients visitor will be instructed to remain with patient at all times or leave the building. We will allow the visitor to come back to the postoperative area when patient is ready. Preoperative COVID Testing Requirements: TO E-MAIL COPY OF CARD No COVID Test needed if: (proof is required; if not received patient will have Rapid Test prior to entry) - Patient has received COVID Vaccine at least 14 days prior to procedure date or - Patient has positive COVID test result within last 90 days of surgery date. COVID Test needed if above criteria is not met Patients may have clear liquids (water, carbonated beverages, clear teas, apple juice) until 3 hours prior to surgery with a maximum of 20 ounces. - No food from midnight until time of surgery Take the following medications with a SIP of water the morning of surgery: SERTRALINE Medications to discontinue per physician: N/A Date to take last dose: N/A Please no make-up, nail greek, hairspray, perfume, deodorant, or body powder the day of surgery. No jewelry (including any body piercings) or valuables the day of surgery, leave them at home. Please take a shower or bath the night before, or the morning of, surgery with an antibacterial soap. Wear comfortable, loose fitting clothing. - Jewelry must be removed prior to entering the operating room. Rings and piercings that are not removed may be cut off. - The hospital will not accept responsibility for valuables. - Please leave all valuables, including medications, at home the day of surgery. If you are going home after surgery, a licensed steam train driver must drive you home. - NO public transportation without another adult. - We recommend that an adult stay with you for 24 hours following discharge. - We also recommend that you do not drive, make important decision, drink alcoholic beverages, or take any drugs that were not prescribed by your health care provider for at least 24 hours after your discharge time. Follow any additional instructions given to you from your surgeon. Telephone instructions given to DARÍO KC and asked if any additional questions and then verbalized understanding. Patient advised to call surgeon office or pre surgery nurse liaison [phone] if any additional questions.
--- NOTE | 2021-12-15 12:33 | P.PNAN_ITS ---
Anes - Initial Pre Proc Eval Procedure: Operation Date: 12/16/21 12:30 Proposed Procedures p Suction Dilatation and Curettage - Angie Rendon MD Date/Time: 12/15/21 12:33 Surgeon: Angie Rendon MD Pre Op Diagnosis: missed AB Patient Data Age: 26 Gender: F Height: 1.57 m Weight: 83.91 kg Allergies Allergy/AdvReac Type Severity Reaction Status Date / Time No Known Allergies Allergy Verified 12/16/21 11:31 Home Medications Medication Instructions Recorded Confirmed Type sertraline 50 mg tablet See Rx Instructions .ROUTE 09/27/21 12/16/21 Rx .COMPLEX #90 tablet Patient hx anesthesia problems: none Family hx anesthesia problems: none Results Review: All pre-operative results and documents have been reviewed as part of the pre-operative evaluation. [facility] Past Medical History Medical History ALBERTO (generalized anxiety disorder) Kidney stone 8 mm right nonobstructing stone Major depression, recurrent Obesity, Class I, BMI 30-34.9 Surgical History Surgical History deliv NOS-unsp H/O: Previous section (~07/2018) Family History Family History Mother Heart disease CHF Fibromyalgia Diabetes mellitus Peptic ulcer disease Social History Social History Smoking status: Current some day smoker Tobacco type: cigarettes Second hand tobacco smoke exposure: No Additional smoking assessment comments: AT AGE 17 ONLY Alcohol intake: never Substance use: current Substance use type: marijuana Last use: 2 mos ago Living arrangements: with family Gender identity (if verbalized by the patient): Female Sexual Orientation (if Verbalized by the Patient): Straight or Heterosexual Spiritual care concerns: No Anes - Eval Final PreProcedure Day of Procedure 12/15/21 12:33 Patient weight: overweight Heart: regular rate and rhythm Lungs: clear to auscultation and normal air movement Airway: Mallampati scale class II Neurological: alert and oriented Last oral intake: >/= 8 hours ASA classification: II Emergent: no Anesthetic plan: proceed Anesthesia type and monitoring: general GIVS and LMA Results Review: All pre-operative results and documents have been reviewed as part of the pre-operative evaluation. Informed Consent: The patient's anesthetic plan and its attendant risks and benefits were discussed with the patient/family/POA. Questions were solicited and answers provided to the satisfaction of the patient/family/POA.
[2021-12-16 10:48] VITALS: BP 114/65; PULSE 65; RESP 18; TEMP 35.9; O2SAT 98
[2021-12-16] MEDS: LACTATED RINGERS 1,000 ML 30 ML IV CONT (11:25)
--- NOTE | 2021-12-16 11:51 | PM.IMHP ---
H&P: HPI History of Present Illness Date/Time: 12/16/21 11:44 Karyna is a 89yo , LMP 09/28/21 who presented w/ +HPT. She reported spotting for last couple of days. She reports associated cramping, which she has with every . Her last delivery was at [facility]; blood type O positive. Beta HCGs were trended and did not rise appropriately. She then started having increased bleeding on 12/10/21 and repeat beta dropped from 117k to 55k. US showed a large complex mass above the cervix, concerning for clot with incomplete AB. She has continued to have bleeding and cramping and no longer wants to proceed with expectant management and would like to proceed with suction D&C. She has a complex OB history: - h/o IUGR leading to delivery - H/o gestational DM - Previous c/s x2 - H/o placenta previa - Obesity - H/o anemia Chief Complaint: incomplete Review of Systems Constitutional: Constitutional: Denies fatigue and Denies fever(s) Cardiovascular: Cardiovascular: Denies chest pain and Denies dyspnea Gastrointestinal: Gastrointestinal: Denies nausea and Denies vomiting Genitourinary: Genitourinary: Reports abnormal vaginal bleeding and Reports pelvic pain Neurologic: Denies dizziness and Denies headache(s) Psychiatric: Psychiatric: Denies anxiety and Denies depression PMFSH Past Medical History Medical History ALBERTO (generalized anxiety disorder) Kidney stone 8 mm right nonobstructing stone Major depression, recurrent Obesity, Class I, BMI 30-34.9 Surgical History Surgical History deliv NOS-unsp H/O: Previous section (~07/2018) Family History Family History Mother Heart disease CHF Fibromyalgia Diabetes mellitus Peptic ulcer disease Social History Social History Smoking status: Current some day smoker Tobacco type: cigarettes Second hand tobacco smoke exposure: No Additional smoking assessment comments: AT AGE 17 ONLY Alcohol intake: never Substance use: current Substance use type: marijuana Last use: 2 mos ago Living arrangements: with family Gender identity (if verbalized by the patient): Female Sexual Orientation (if Verbalized by the Patient): Straight or Heterosexual Spiritual care concerns: No Meds Home Medications and Allergies Home Medications Medication Instructions Recorded Confirmed Type sertraline 50 mg tablet See Rx Instructions .ROUTE 09/27/21 12/16/21 Rx .COMPLEX #90 tablet Allergies Allergy/AdvReac Type Severity Reaction Status Date / Time No Known Allergies Allergy Verified 12/16/21 11:31 Exam Const: General: cooperative, comfortable and no acute distress Nutritional Appearance: obese Resp: Effort & Inspection: normal respiratory effort Cardio: Rate: regular rate GI: GI Palp: No abdominal tenderness and Yes Soft to palpation : Other: deferred to OR Skin: General skin exam: normal color Neuro: General: patient oriented x3 Extrem: General: normal to inspection Psych: Appearance: grossly normal Affect: normal affect Attitude: cooperative Assessment and Plan Assessment and plan (1) Incomplete : Code(s): O03.4 - Incomplete spontaneous without complication Status: Acute Additional Plan - Incomplete ; counseled on options and desires to proceed with suction D&C - All risks and benefits explained - Pt is Rh positive; no need for rhogam - Doxycycline 200mg PO once post-op
--- NOTE | 2021-12-16 11:51 | WPDHPUPDATE1 ---
History and Physical Update Update Date/Time: 12/16/21 11:51 History and Physical has been reviewed, including an updated exam of the patient. There are NO changes in the patient's condition. Risks, benefits, and alternatives have been discussed and questions answered. Patient agrees to proceed with procedure.
[2021-12-16] MEDS: KETOROLAC 30 MG/ML VIAL (*BKC) IV PUSH (12:45)
[2021-12-16 12:58] VITALS: BP 117/69; PULSE 88; RESP 16; O2SAT 97
--- NOTE | 2021-12-16 13:04 | P.OP_ITS ---
Procedure Note - Detailed Date of Procedure 12/16/21 Pre-op Diagnosis missed AB Post-op Diagnosis Same Procedure Performed Suction dilation and curettage Surgeon Angie Rendon MD Anesthesia MAC Indications Karyna is a , LMP 09/28/21 who presented to her first OB visit w/ complaints of vaginal bleeding and spotting. Her beta's were trended and initially went from 109k to 117k, then 55k. She started having bleeding 12/10/21. US was performed 12/13/21 and showed a complex clot above the cervix. She cont inued having bleeding and cramping all week and desired to proceed with suction D&C. Findings Uterus: 9cm, Cervix: 1.5cm dilated, ~10cc of blood/clot in the vagina/cervix. Decent amount of products of conception removed. Good hemostasis at end of case. Description of Procedure Karyna was taken operating room where she was placed under sedation. Once comfortable she was prepped and draped in the usual sterile fashion in the dorsal lithotomy position with her legs in low Gerald stirrups. A time-out was performed and no preoperative antibiotics were indicated. Once comfortable a bivalved speculum was placed within the vagina. The cervix was easily identified and the anterior lip was grasped with a single-tooth tenaculum. The above findings were noted. The cervix was serially dilated to allow for a 9 Belgian suction curettage. The curettage was placed within the abdomen and placement was confirmed at the fundus using the ultrasound. Four passes were made and a decent amount of products of conception were removed. Good hemostasis was noted and the cervix was found to be closed. Bedside ultrasound was once again performed and endometrium was found to be very thin. Good hemostasis was noted. All instruments were removed from the vagina. Sponge, lap, and instrument counts were correct at the of the procedure. Patient was awoken from sedation and taken to recovery in a stable condition. She will receive doxycycline 200 mg PO once before being discharged home. Estimated Blood Loss -50.0 IV Fluids 600 Drains No Packing No Pathology Yes Complications No immediate complications Condition Stable Disposition Same day
[2021-12-16] MEDS: ACETAMINOPHEN 500 MG TABLET 1000 MG PO (13:23)
[2021-12-16] MEDS: DOXYCYCLINE HYCLATE 100 MG TABLET 200 MG PO (13:23)
[2021-12-16 13:25] VITALS: BP 101/65; PULSE 59; RESP 18; O2SAT 97
== END 2021-12-16 13:43 | disposition home or self-care (01) ==
PROVIDERS: PCP Obstetrics & Gynecology; Visit Provider Obstetrics & Gynecology
PROC: (CPT 59820; principal; 2021-12-16 12:30)
DX: O02.0 Blighted ovum and nonhydatidiform mole (principal); F41.1 Generalized anxiety disorder; F41.8 Other specified anxiety disorders; F17.210 Nicotine dependence, cigarettes, uncomplicated; F12.90 Cannabis use, unspecified, uncomplicated
CPT/HCPCS: 59820; 88305; A9270; J1100; J1885; J2250; J2405; J2704; J3010; J7120

== ENCOUNTER 2022-01-27 15:55 | Outpatient (CLI) | payer BC, MEDICAID, SELFPAY ==
[2022-01-27 16:57] LABS: Beta HCG Quantitative 29.53 mIU/ML
== END 2022-01-27 15:56 | disposition home or self-care (01) ==
LOC: ANHLAB 15:57
PROVIDERS: PCP Family Medicine; Visit Provider Obstetrics & Gynecology
DX: N91.2 Amenorrhea, unspecified (principal)
CPT/HCPCS: 36415; 84702

== ENCOUNTER 2022-01-29 12:04 | Outpatient (CLI) | payer BC, MEDICAID, SELFPAY ==
[2022-01-29 12:56] LABS: Beta HCG Quantitative 45.19 mIU/ML
== END 2022-01-29 12:05 | disposition home or self-care (01) ==
LOC: ANHLAB 12:05
PROVIDERS: PCP Family Medicine; Visit Provider Obstetrics & Gynecology
DX: N92.6 Irregular menstruation, unspecified (principal)
CPT/HCPCS: 36415; 84702

== ENCOUNTER 2022-02-10 11:56 | Outpatient (CLI) | payer BC, MEDICAID, SELFPAY ==
[2022-02-10 12:31] LABS: Beta HCG Quantitative < 1.00 mIU/mL (0-6)
== END 2022-02-10 11:57 | disposition home or self-care (01) ==
LOC: CHSLAB 11:58
PROVIDERS: PCP Family Medicine; Visit Provider Obstetrics & Gynecology
DX: O20.0 Threatened abortion (principal); Z3A.00 Weeks of gestation of pregnancy not specified
CPT/HCPCS: 36415; 84702

== ENCOUNTER 2022-12-08 08:31 | Outpatient (CLI) | payer BC, SELFPAY ==
[2022-12-08 09:04] LABS: Strep Group A RT-PCR DETECTED (Negative)
== END 2022-12-08 08:32 | disposition home or self-care (01) ==
LOC: CHSLAB 08:32
PROVIDERS: PCP Family Medicine; Visit Provider Family Medicine
DX: J02.0 Streptococcal pharyngitis (principal)
CPT/HCPCS: 87651

== ENCOUNTER 2022-12-08 17:00 | Emergency (ER) | payer BC, SELFPAY ==
[2022-12-08 17:06] VITALS: BP 133/95; PULSE 107; RESP 12; TEMP 37.2; O2SAT 98
[2022-12-08] MEDS: ONDANSETRON INJ 4 MG/2 ML VIAL IV PUSH (17:35)
[2022-12-08] MEDS: SODIUM CHLORIDE 0.9% IV 1,000 ML 999 ML IV CONT (17:36)
[2022-12-08 17:45] LABS: Hematocrit 41.4 % (35.0-49.0); Hemoglobin 13.2 g/dL (12.0-15.0); Mean Corpuscular HGB Conc 31.9 g/dL (32.0-36.0); Mean Corpuscular Hemoglobin 27.9 pg (27.0-31.0); Mean Corpuscular Volume 87.5 fL (78.0-102.0); Platelet Count Result 437 K/mm3 (150-420); Red Blood Count 4.73 M/mm3 (4.20-5.40); Red Cell Distribution Width 13.8 % (11.6-14.4)
--- NOTE | 2022-12-08 17:49 | ED.NAVMDI ---
HPI - Nausea/Vomiting/Diarrhea General Chief complaint: Nausea/Vomiting/Diarrhea Stated complaint: Strep pos, vomitting Time Seen by Provider: 12/08/22 17:17 Source: patient Mode of arrival: ambulatory Limitations: no limitations History of Present Illness HPI Narrative: this is a 27-year-old female that called her primary earlier today and was tested for strep which she tested positive and started on amoxicillin, prior to that has been having episodes of nausea and vomiting 8 in total currently she is having dry heaves with some some nasal congestion and drainage, otherwise no fever chills patient was started on amoxicillin earlier today, with some no abdominal pain no diarrhea or constipation. MD elicited complaint: nausea and vomiting Onset (ago): hour(s) Description of vomiting: watery Associated nausea: Yes Associated abdominal pain: No Related Data Allergies Allergy/AdvReac Type Severity Reaction Status Date / Time No Known Allergies Allergy Verified 01/27/22 14:45 Review of Systems Review of Systems: All systems reviewed & are unremarkable except as noted in HPI and below PMFSH Past Medical History Medical History ALBERTO (generalized anxiety disorder) Kidney stone 8 mm right nonobstructing stone Major depression, recurrent Obesity, Class I, BMI 30-34.9 Surgical History Surgical History deliv NOS-unsp H/O: History of dilation and curettage Previous section (~07/2018) Family History Family History Mother Heart disease CHF Fibromyalgia Diabetes mellitus Peptic ulcer disease Social History Social History Smoking status: Current some day smoker Tobacco type: cigarettes Second hand tobacco smoke exposure: No Additional smoking assessment comments: AT AGE 17 ONLY Alcohol intake: never Substance use: current Substance use type: marijuana Last use: 2 mos ago Living arrangements: with family Gender identity (if verbalized by the patient): Female Sexual Orientation (if Verbalized by the Patient): Straight or Heterosexual Spiritual care concerns: No Exam Const: General: healthy appearing Nutritional Appearance: well nourished Orientation/consciousness: patient oriented x3 Limitations: no limitations HENMT: Head: normal to inspection Ears: external ears normal Face/Nose/Sinus: Normal external nose present Face and sinus: normal facial exam Mouth: Yes Normal oral and palatal mucosa present Eyes: Conjunctivae: conjunctivae normal Cornea: corneas normal Pupils: Equal, round and reactive pupils present EOM: EOMs intact bilaterally Neck: Neck: normal visual inspection Chest: Chest palpation & inspection: normal inspection of the chest Resp: Effort & Inspection: normal respiratory effort Auscultation: clear to auscultation bilaterally Cardio: Rate: regular rate Rhythm: regular rhythm GI: GI Palp: Yes Soft to palpation : General: Yes bladder normal to palpation Urinary Catheter: Urinary Catheter: patent and draining Back/Spine/Pelvis: Back: no CVA tenderness Skin: General skin exam: normal color Rashes: no rashes Wounds: no wounds Neuro: General: patient oriented x3 and moves all extremities Cranial nerves: Yes Nystagmus not present Speech: normal speech Gait exam (Neuro): Normal gait present Extrem: General: normal to inspection, no clubbing, cyanosis or edema and no pedal edema Psych: Mental Status: mental status grossly normal Affect: normal affect Attitude: cooperative Course Course Emergency Course: Labs reviewed with patient, patient received a normal saline, and IV Zofran and symptoms have improved. Vital Signs Vital signs: Vital Signs Temperature 37.2 C 12/08/22 17:06 Pulse Rate 107
[2022-12-08 17:55] LABS: White Blood Count 21.1 K/mm3 (4.8-10.8)
[2022-12-08 17:57] LABS: Band Neutrophils Percent 0 % (0-6); Basophils Percent Manual 0 % (0-1); Eosinophils Percent Manual 0 % (1-6); Lymphocytes Absolute Manual 0.63 K/mm3 (1.1-4.5); Lymphocytes Percent Manual 3 % (18-44); Monocytes Absolute Manual 0.84 K/mm3 (0.1-0.90); Monocytes Percent Manual 4 % (3-9); Neutrophils Absolute Manual 19.62 K/mm3 (1.7-7.2); Neutrophils Percent Manual 93 % (46-73); Platelet Estimate Adequate (Adequate)
[2022-12-08 18:07] LABS: Alanine Aminotransferase 67 U/L (14-59); Albumin Level 3.7 g/dL (3.4-5.0); Alkaline Phosphatase 101 U/L (46-116); Anion Gap 12 mmol/L (8-16); Aspartate Amino Transferase 46 U/L (15-37); Bilirubin,Total 0.6 mg/dL (0.00-1.00); Blood Urea Nitrogen 8 mg/dL (7-18); Calcium 9.1 mg/dL (8.5-10.1); Carbon Dioxide 25 mmol/L (21-32); Chloride 103 mmol/L (98-108); Estimated CRCL calculation 99 ml/min; Estimated Glomerular Filt Rate > 60; Glucose 129 mg/dL (70-99); Osmolality Calculated 290 mOsm/kg (285-295); Potassium 3.5 mmol/L (3.5-5.1); Sodium 140 mmol/L (136-145); Total Protein 8.8 g/dL (6.4-8.2)
[2022-12-08 18:36] VITALS: BP 133/95; PULSE 98; RESP 20; TEMP 37.1; O2SAT 98
== END 2022-12-08 18:40 | disposition home or self-care (01) ==
PROVIDERS: Emergency Provider Emergency Medicine; PCP Family Medicine
DX: J02.0 Streptococcal pharyngitis (principal); R11.2 Nausea with vomiting, unspecified; F17.210 Nicotine dependence, cigarettes, uncomplicated
CPT/HCPCS: 36415; 80053; 85025; 96361; 96365; 96375; 99283; 99284; J0696; J2405; J7030

== ENCOUNTER 2023-09-18 13:13 | Emergency (ER) | payer BC, MEDICAID, SELFPAY ==
--- NOTE | ~2023-09-18 | US_ITS ---
EXAMINATION: US OB <=14 wk fetus w TV DATE: 09/18/2023 14:34 INDICATION: First trimester dating TECHNIQUE: Real-time pelvic transabdominal and transvaginal ultrasound was performed. COMPARISON: None. FINDINGS: The uterus measures 10.1 x 7.5 x 7.4 cm. There is an intrauterine gestational sac. A yolk s ac is identified. heart motion is identified measuring 190 beats per minute (bpm) by M-mode Dop pler. The crown rump length measures 2.6 cm, which correlates with an estimated gestational age of 9 weeks and 1 day(s) (+/-) 4 day(s). The left ovary is not visualized however no left adnexal abnormality is seen. The right ovary measure s 3.4 x 2.1 x 2.1 cm. There is normal vascular flow in the right ovary. There is no free fluid in the pelvis. IMPRESSION: 1. Live intrauterine with an estimated gestational age of 9 weeks and 1 day(s) (+/-) 4 day( s) and an estimated delivery date of 04/21/2024. Reviewed, dictated and finalized at location B. [facility] IMPRESSION: 1. Live intrauterine with an estimated gestational age of 9 weeks and 1 day(s) (+/-) 4 day(s) and an estimated delivery date of 04/21/2024.
[2023-09-18 13:13] VITALS: BP 135/85; PULSE 96; RESP 18; TEMP 36.8; O2SAT 97
--- NOTE | 2023-09-18 13:26 | ED.GENADULT ---
HPI - General Adult General Chief complaint: Nausea/Vomiting/Diarrhea Stated complaint: VOMITING Time Seen by Provider: 09/18/23 13:15 History of Present Illness HPI narrative: 28yo woman newly , LMP May but tested negative in Jun and Jul; positive in August. Presents for unremitting nausea and vomiting since 4 this morning. No fever. No diarrhea. No abdominal pain, vaginal bleeding, discharge, or dysuria. Related Data Allergies Allergy/AdvReac Type Severity Reaction Status Date / Time No Known Allergies Allergy Verified 09/18/23 13:14 Review of Systems Review of Systems: All systems reviewed & are unremarkable except as noted in HPI and below Constitutional: Constitutional: Denies chills and Denies fever(s) ENT: Denies dysphagia Cardiovascular: Cardiovascular: Denies chest pain Respiratory: Respiratory: Denies dyspnea Gastrointestinal: Gastrointestinal: Denies abdominal pain and Reports vomiting PMFSH Past Medical History Medical History ALBERTO (generalized anxiety disorder) Kidney stone 8 mm right nonobstructing stone Major depression, recurrent Obesity, Class I, BMI 30-34.9 Surgical History Surgical History deliv NOS-unsp H/O: History of dilation and curettage Previous section (~07/2018) Family History Family History Mother Heart disease CHF Fibromyalgia Diabetes mellitus Peptic ulcer disease Social History Social History Smoking status: Current some day smoker Tobacco type: cigarettes Second hand tobacco smoke exposure: No Additional smoking assessment comments: AT AGE 17 ONLY Alcohol intake: never Substance use: current Substance use type: marijuana Last use: 2 mos ago Living arrangements: with family Gender identity (if verbalized by the patient): Female Sexual Orientation (if Verbalized by the Patient): Straight or Heterosexual Spiritual care concerns: No Exam Const: General: healthy appearing Nutritional Appearance: well nourished Eyes: Conjunctivae: conjunctivae normal Resp: Effort & Inspection: normal respiratory effort Auscultation: clear to auscultation bilaterally Cardio: Rate: regular rate Rhythm: regular rhythm Heart sounds: no murmurs GI: Inspection: non-distended GI Palp: Yes Soft to palpation and No Tenderness to palpation present (GI) Skin: General skin exam: normal color, no jaundice and no pallor Neuro: General: patient oriented x3 Medical Decision Making MDM Narrative Medical decision making narrative: Nausea and vomiting in early . Dates unknown. IV fluids and antiemetics. Screen metabolic markers and blood counts. Ultrasound demonstrates an appropriately 9 week old baby alive and moving Discharge Plan Discharge Clinical Impression: Nausea and vomiting during , First trimester Patient Disposition: Home, Self-Care Condition: Improved Instructions: Antibiotic Form Additional Instructions: Your ultrasound shows baby to be alive and well and approximately 9 weeks old. Take the prescribed medications as needed for nausea. Follow-up with the [facility] service of your choice. Prescriptions: New ondansetron 4 mg tablet,disintegrating 4 mg PO Q6H PRN (Reason: nausea and vomiting) Qty: 20 0RF promethazine 25 mg tablet 25 mg PO Q6H PRN (Reason: nausea and vomiting) Qty: 20 0RF Follow-up/Referrals: Deshawn Earl DO [Primary Care Provider] - Time of Disposition: 14:39
[2023-09-18 13:42] LABS: Basophils Absolute Auto 0.02 K/mm3 (0.00-0.10); Basophils Percent Auto 0.2 % (0.0-1.0); Eosinophils Absolute Auto 0.02 K/mm3 (0.02-0.50); Eosinophils Percent Auto 0.2 % (1.0-6.0); Hematocrit 39.4 % (35.0-49.0); Hemoglobin 13.2 g/dL (12.0-15.0); Immature Granulocyte Absolute 0.05 K/mm3 (0.00-0.00); Immature Granulocyte Percent A 0.5 % (0.0-0.0); Lymphocytes Absolute Auto 1.11 K/mm3 (1.10-4.50); Lymphocytes Percent Auto 10.2 % (18.0-42.0); Mean Corpuscular HGB Conc 33.5 g/dL (32.0-36.0); Mean Corpuscular Hemoglobin 28.8 pg (27.0-31.0); Mean Platelet Volume 10.1 fl (9.2-11.8); Monocytes Absolute Auto 0.41 K/mm3 (0.10-0.90); Monocytes Percent Auto 3.8 % (2.0-11.0); Neutrophils Absolute Auto 9.3 K/mm3 (1.7-7.2); Neutrophils Percent Auto 85.1 % (50.0-70.0); Platelet Count Result 448 K/mm3 (150-420); Red Blood Count 4.58 M/mm3 (4.20-5.40); Red Cell Distribution Width 13.7 % (11.6-14.4); White Blood Count 10.9 K/mm3 (4.8-10.8)
[2023-09-18] MEDS: DEXTROSE 5%/0.9% SOD CHL 1,000 ML 500 ML IV CONT (14:04)
--- NOTE | 2023-09-18 14:07 | PC.NURSE ---
UA SENT TO LAB, IVF INFUSING ORDERED WITHOUT DIFFICULTY. PT HAS DECLINED HIV TESTING, FORM SIGNED.
[2023-09-18 14:08] LABS: Appearance Urine Clear (Clear); Bilirubin Urine 1+ (Negative); Blood Urine Negative (Negative); Color Urine Yellow (Yellow); Glucose Urine UA Negative (Negative); Ketones Urine 3+ (Negative); Leukocyte Esterase Ur Negative LEU/UL (Negative); Nitrate Urine Negative (Negative); Protein Urine 1+ (Negative); Specific Grav Ur >= 1.030 (1.010-1.020); Urobilinogen Urine 0.2 mg/dL (0.2-1.0)
[2023-09-18 14:10] LABS: Add Urine Microscopic? YES; Bacteria Urine 1+ /hpf; RBC Urine None seen /hpf (0-2); Squamous Epithelial Cell Urine Few /hpf (Few); WBC Urine None seen /hpf (0-3)
[2023-09-18 14:11] LABS: Mucus Urine Moderate /lpf
[2023-09-18 14:18] LABS: Alanine Aminotransferase 17 U/L (14-59); Albumin Level 3.7 g/dL (3.4-5.0); Alkaline Phosphatase 70 U/L (46-116); Anion Gap 11 mmol/L (8-16); Aspartate Amino Transferase 10 U/L (15-37); Bilirubin,Total 0.4 mg/dL (0.00-1.00); Blood Urea Nitrogen 5 mg/dL (7-18); Calcium 9.2 mg/dL (8.5-10.1); Carbon Dioxide 25 mmol/L (21-32); Chloride 100 mmol/L (98-108); Estimated CRCL calculation 129 ml/min; Estimated Glomerular Filt Rate > 60; Glucose 109 mg/dL (70-99); Osmolality Calculated 280 mOsm/kg (285-295); Potassium 3.1 mmol/L (3.5-5.1); Sodium 136 mmol/L (136-145); Total Protein 8.1 g/dL (6.4-8.2)
[2023-09-18] MEDS: PROMETHAZINE HCL 25 MG/ML AMPUL 12.5 MG IV PUSH (14:41)
[2023-09-18] MEDS: ONDANSETRON INJ 4 MG/2 ML VIAL 8 MG IV PUSH (14:41)
--- NOTE | 2023-09-18 14:50 | PC.NURSE ---
PT HAS HAD 2 EMESIS EPISODES OF LIQUID IN EXAM ROOM. MEDICATION WAS ADMINISTERED ORDERED WITHOUT DIFFICULTY. PT HAS RETURNED FROM ULTRASOUND WITH IV INFUSING ORDERED WITHOUT DIFFICULTY. PT DENIES ANY NEEDS OR COMPLAINTS. WILL CONTINUE TO MONITOR.
[2023-09-18 15:45] VITALS: BP 100/74; PULSE 68; RESP 16; O2SAT 99
--- NOTE | 2023-09-18 15:46 | PC.NURSE ---
PT REPORTS NAUSEA HAS IMPROVED POST MEDICATIONS.
== END 2023-09-18 15:50 | disposition home or self-care (01) ==
PROVIDERS: Emergency Provider Emergency Medicine; PCP Family Medicine
DX: O26.891 Other specified pregnancy related conditions, first trimester (principal); R11.2 Nausea with vomiting, unspecified; O99.331 Smoking (tobacco) complicating pregnancy, first trimester; F17.210 Nicotine dependence, cigarettes, uncomplicated; Z3A.09 9 weeks gestation of pregnancy
CPT/HCPCS: 36415; 76801; 76817; 80053; 81001; 84702; 85025; 96361; 96374; 96375; 99284; J2405; J2550; J7042

== ENCOUNTER 2023-09-29 08:25 | Emergency (ER) | payer BC, MEDICAID, SELFPAY ==
[2023-09-29 08:28] VITALS: BP 123/81; PULSE 112; RESP 18; TEMP 37; O2SAT 98
--- NOTE | 2023-09-29 08:33 | ED.NAVMDI ---
HPI - Nausea/Vomiting/Diarrhea General Chief complaint: Nausea/Vomiting/Diarrhea Stated complaint: Nausea Time Seen by Provider: 09/29/23 08:25 Source: patient Mode of arrival: ambulatory Limitations: no limitations History of Present Illness HPI Narrative: patient is a 28-year-old female who is currently with associated nausea and vomiting. She has no other complaints. No abdominal pain. No discharges. MD elicited complaint: nausea and vomiting Pertinent past history: cyclical vomiting Onset (ago): hour(s) Description of vomiting: watery Description of diarrhea: watery Associated nausea: Yes Associated abdominal pain: No Location of pain: none Exacerbating factors: eating Relieving factors: none and medication ( Patient has tried Zofran without success) Associated symptoms: nausea/vomiting Related Data Allergies Allergy/AdvReac Type Severity Reaction Status Date / Time No Known Allergies Allergy Verified 09/29/23 08:59 Review of Systems Review of Systems: All systems reviewed & are unremarkable except as noted in HPI and below Constitutional: Constitutional: Reports no additional constitutional complaints Eyes: Eyes: Reports no additional eye complaints ENT: Reports system reviewed and no additional complaints, except as documented Cardiovascular: Cardiovascular: Reports no additional cardiovascular complaints Respiratory: Respiratory: Reports no additional respiratory complaints Gastrointestinal: Gastrointestinal: Reports no additional gastrointestinal complaints Genitourinary: Genitourinary: Reports no additional female genitourinary complaints Musculoskeletal: Musculoskeletal: Reports no additional musculoskeletal complaints Integumentary/Breasts: Skin/Breast: Reports system reviewed and no additional complaints, except as docu Neurologic: Reports system reviewed and no additional complaints, except as documented Psychiatric: Psychiatric: Reports no additional psychiatric complaints Endocrine: Endocrine: Reports no additional endocrine complaints Hematologic/Lymphatic: Hematologic/Lymphatic: Reports no additional hematologic/lymphatic complaints Allergic/Immunologic: Allergic/Immunologic: Reports no additional allergic/immunologic complaints PMFSH Past Medical History Medical History ALBERTO (generalized anxiety disorder) Kidney stone 8 mm right nonobstructing stone Major depression, recurrent Obesity, Class I, BMI 30-34.9 Surgical History Surgical History deliv NOS-unsp H/O: History of dilation and curettage Previous section (~07/2018) Family History Family History Mother Heart disease CHF Fibromyalgia Diabetes mellitus Peptic ulcer disease Social History Social History Smoking status: Current some day smoker Tobacco type: cigarettes Second hand tobacco smoke exposure: No Additional smoking assessment comments: AT AGE 17 ONLY Alcohol intake: never Substance use: current Substance use type: marijuana Last use: 2 mos ago Living arrangements: with family Gender identity (if verbalized by the patient): Female Sexual Orientation (if Verbalized by the Patient): Straight or Heterosexual Spiritual care concerns: No Exam Const: General: healthy appearing Nutritional Appearance: well nourished Orientation/consciousness: patient oriented x3 HENMT: Head: normal to inspection Ears: external ears normal Face/Nose/Sinus: Normal external nose present Eyes: Conjunctivae: conjunctivae normal Cornea: corneas normal Pupils: Equal, round and reactive pupils present Neck: Neck: normal visual inspection Chest: Chest palpation & inspection: normal inspection of the chest Resp: Effort & Inspection: normal
[2023-09-29 08:41] LABS: Basophils Absolute Auto 0.02 K/mm3 (0.00-0.10); Basophils Percent Auto 0.2 % (0.0-1.0); Eosinophils Absolute Auto 0.03 K/mm3 (0.02-0.50); Eosinophils Percent Auto 0.3 % (1.0-6.0); Hematocrit 41.5 % (35.0-49.0); Hemoglobin 13.3 g/dL (12.0-15.0); Immature Granulocyte Absolute 0.04 K/mm3 (0.00-0.00); Immature Granulocyte Percent A 0.4 % (0.0-0.0); Lymphocytes Absolute Auto 1.31 K/mm3 (1.10-4.50); Lymphocytes Percent Auto 13.1 % (18.0-42.0); Mean Corpuscular Hemoglobin 28.1 pg (27.0-31.0); Mean Corpuscular Volume 87.6 fL (78.0-102.0); Mean Platelet Volume 10.2 fl (9.2-11.8); Monocytes Absolute Auto 0.39 K/mm3 (0.10-0.90); Monocytes Percent Auto 3.9 % (2.0-11.0); Neutrophils Absolute Auto 8.2 K/mm3 (1.7-7.2); Neutrophils Percent Auto 82.1 % (50.0-70.0); Platelet Count Result 406 K/mm3 (150-420); Red Blood Count 4.74 M/mm3 (4.20-5.40); Red Cell Distribution Width 13.4 % (11.6-14.4)
[2023-09-29] MEDS: SODIUM CHLORIDE 0.9% IV 1,000 ML 999 ML IV CONT ×2 (08:44→09:19)
[2023-09-29] MEDS: ONDANSETRON INJ 4 MG/2 ML VIAL IV PUSH (08:45)
[2023-09-29 08:58] LABS: Alanine Aminotransferase 19 U/L (14-59); Albumin Level 3.4 g/dL (3.4-5.0); Alkaline Phosphatase 73 U/L (46-116); Anion Gap 10 mmol/L (8-16); Aspartate Amino Transferase 28 U/L (15-37); Bilirubin,Total 0.3 mg/dL (0.00-1.00); Blood Urea Nitrogen 5 mg/dL (7-18); Calcium 9.6 mg/dL (8.5-10.1); Carbon Dioxide 27 mmol/L (21-32); Chloride 99 mmol/L (98-108); Estimated CRCL calculation 113 ml/min; Estimated Glomerular Filt Rate > 60; Glucose 109 mg/dL (70-99); Osmolality Calculated 280 mOsm/kg (285-295); Potassium 3.8 mmol/L (3.5-5.1); Sodium 136 mmol/L (136-145); Total Protein 8.5 g/dL (6.4-8.2)
[2023-09-29 10:03] LABS: Bilirubin Urine 1+ (Negative); Blood Urine Negative (Negative); Color Urine Yellow (Yellow); Glucose Urine UA Negative (Negative); Ketones Urine 3+ (Negative); Leukocyte Esterase Ur Trace LEU/UL (Negative); Nitrate Urine Negative (Negative); Protein Urine 1+ (Negative); Specific Grav Ur >= 1.030 (1.010-1.020); Urobilinogen Urine 0.2 mg/dL (0.2-1.0)
[2023-09-29 10:08] LABS: Add Urine Microscopic? YES; Appearance Urine Cloudy (Clear); Bacteria Urine 1+ /hpf; Mucus Urine Moderate /lpf; RBC Urine None seen /hpf (0-2); Squamous Epithelial Cell Urine Moderate /hpf (Few); WBC Urine 0-3 /hpf (0-3)
[2023-09-29 11:20] VITALS: BP 118/80; PULSE 70; RESP 20; TEMP 36.4; O2SAT 99
== END 2023-09-29 11:24 | disposition home or self-care (01) ==
PROVIDERS: Emergency Provider Emergency Medicine; PCP Family Medicine
DX: O21.0 Mild hyperemesis gravidarum (principal); O23.41 Unspecified infection of urinary tract in pregnancy, first trimester; O26.891 Other specified pregnancy related conditions, first trimester; E86.0 Dehydration; O99.331 Smoking (tobacco) complicating pregnancy, first trimester; F17.210 Nicotine dependence, cigarettes, uncomplicated; Z3A.10 10 weeks gestation of pregnancy
CPT/HCPCS: 36415; 80053; 81001; 83735; 85025; 96361; 96374; 99284; J2405; J7030

== ENCOUNTER 2024-04-04 09:59 | Emergency (ER) | payer BC, MEDICAID, SELFPAY ==
--- NOTE | ~2024-04-04 | US_ITS ---
EXAMINATION: US right upper quadrant DATE: 04/04/2024 10:54 INDICATION: Right upper quadrant abdominal pain TECHNIQUE: Multiple grayscale and Doppler ultrasound images of the abdomen were obtained. COMPARISON: CT abdomen pelvis dated 05/18/2021 FINDINGS: The pancreatic head and body are normal in appearance. The pancreatic tail is not visualized. The vi sualized inferior vena cava is normal. Liver has normal echogenicity and contour, with a smooth surfa ce. No liver lesion identified. No intrahepatic biliary duct dilation suspected. Portal venous flow w as seen in the hepatopetal, normal direction and has normal Doppler waveform. The gallbladder is norm al in appearance. There is no cholelithiasis. The common bile duct measures 3 mm, which is normal. S onographic Mckeon sign was reported as negative by the injury prevention coordinator.Visualized portion of the right ki dney demonstrates normal echogenicity with no hydronephrosis. IMPRESSION: 1. Normal right upper quadrant ultrasound. Reviewed, dictated and finalized at location B.
[2024-04-04 09:59] VITALS: BP 118/78; PULSE 94; RESP 20; TEMP 36.7; O2SAT 97
[2024-04-04] MEDS: SODIUM CHLORIDE 0.9% IV 1,000 ML 999 ML IV CONT (10:28)
[2024-04-04 10:29] LABS: Basophils Absolute Auto 0.04 K/mm3 (0.00-0.10); Basophils Percent Auto 0.4 % (0.0-1.0); Eosinophils Absolute Auto 0.77 K/mm3 (0.02-0.50); Eosinophils Percent Auto 7.4 % (1.0-6.0); Hematocrit 39.7 % (35.0-49.0); Hemoglobin 12.9 g/dL (12.0-15.0); Immature Granulocyte Absolute 0.02 K/mm3 (0.00-0.00); Immature Granulocyte Percent A 0.2 % (0.0-0.0); Lymphocytes Absolute Auto 1.95 K/mm3 (1.10-4.50); Lymphocytes Percent Auto 18.8 % (18.0-42.0); Mean Corpuscular HGB Conc 32.5 g/dL (32-36); Mean Corpuscular Hemoglobin 28.2 pg (27.0-31.0); Mean Corpuscular Volume 86.7 fL (78.0-102.0); Mean Platelet Volume 9.5 fl (9.2-11.8); Monocytes Absolute Auto 0.47 K/mm3 (0.10-0.90); Monocytes Percent Auto 4.5 % (2.0-11.0); Neutrophils Absolute Auto 7.15 K/mm3 (1.70-7.20); Neutrophils Percent Auto 68.7 % (50.0-70.0); Platelet Count Result 371 K/mm3 (150-420); Red Blood Count 4.58 M/mm3 (4.20-5.40); Red Cell Distribution Width 13.7 % (11.6-14.4); White Blood Count 10.4 K/mm3 (4.8-10.8)
[2024-04-04 10:30] LABS: Appearance Urine Sl Cloudy (Clear); Bilirubin Urine Negative (Negative); Blood Urine Negative (Negative); Color Urine Light Yellow (Yellow); Glucose Urine UA Negative (Negative); Ketones Urine Negative (Negative); Leukocyte Esterase Ur Negative LEU/UL (Negative); Nitrate Urine Negative (Negative); Protein Urine Negative (Negative); Urobilinogen Urine 0.2 mg/dL (0.2-1.0)
[2024-04-04 10:41] LABS: Add Urine Microscopic? YES; RBC Urine None seen /hpf (0-2); Squamous Epithelial Cell Urine Moderate /hpf (Few); WBC Urine None seen /hpf (0-3)
[2024-04-04 10:42] LABS: Bacteria Urine None seen /hpf
[2024-04-04 10:44] LABS: Alanine Aminotransferase 24 U/L (14-59); Albumin Level 3.4 g/dL (3.4-5.0); Alkaline Phosphatase 86 U/L (46-116); Anion Gap 10 mmol/L (4-12); Aspartate Amino Transferase 19 U/L (15-37); Bilirubin,Total 0.2 mg/dL (0.00-1.00); Blood Urea Nitrogen 8 mg/dL (7-18); Calcium 8.6 mg/dL (8.5-10.1); Carbon Dioxide 25 mmol/L (21-32); Chloride 103 mmol/L (98-108); Estimated CRCL calculation 120 ml/min; Estimated Glomerular Filt Rate > 60; Glucose 106 mg/dL (70-99); Lipase 21 U/L (16-77); Osmolality Calculated 284 mOsm/kg (285-295); Potassium 3.8 mmol/L (3.5-5.1); Sodium 138 mmol/L (136-145); Total Protein 7.6 g/dL (6.4-8.2)
--- NOTE | 2024-04-04 11:02 | ED.ABDPAIN ---
HPI - Abdominal Pain General Chief Complaint: Abdominal Pain Stated Complaint: abdominal pain Time Seen by Provider: 04/04/24 10:07 Source: patient Mode of arrival: ambulatory Limitations: no limitations History of Present Illness HPI narrative: this is a 29-year-old female who presents with a 2 week history of intermittent abdominal pain with bloating with some episodes of nausea vomiting and diarrhea. There is no fever chills, there is no chest pain or shortness of breath. MD elicited complaint: abdominal pain Onset (ago): week(s) Pain Consistency: intermittent Location: diffuse Severity: mild Quality: aching and fullness Migration to: no migration Related Data Allergies Allergy/AdvReac Type Severity Reaction Status Date / Time No Known Allergies Allergy Verified 04/04/24 10:13 Review of Systems Review of Systems: All systems reviewed & are unremarkable except as noted in HPI and below PMFSH Past Medical History Medical History ALBERTO (generalized anxiety disorder) Kidney stone 8 mm right nonobstructing stone Major depression, recurrent Obesity, Class I, BMI 30-34.9 Surgical History Surgical History deliv NOS-unsp H/O: History of dilation and curettage Previous section (~07/2018) Family History Family History Mother Heart disease CHF Fibromyalgia Diabetes mellitus Peptic ulcer disease Social History Social History Smoking status: Current some day smoker Tobacco type: cigarettes Second hand tobacco smoke exposure: No Additional smoking assessment comments: AT AGE 17 ONLY Alcohol intake: never Substance use: current Substance use type: marijuana Last use: 2 mos ago Living arrangements: with family Gender identity (if verbalized by the patient): Female Sexual Orientation (if Verbalized by the Patient): Straight or Heterosexual Spiritual care concerns: No Exam Const: General: healthy appearing, no acute distress and alert Nutritional Appearance: well nourished Limitations: no limitations HENMT: Head: normal to inspection Chest: Chest palpation & inspection: normal inspection of the chest Resp: Effort & Inspection: normal respiratory effort Auscultation: clear to auscultation bilaterally Cardio: Rate: regular rate Rhythm: regular rhythm GI: GI Palp: Yes Soft to palpation Auscultation: normal bowel sounds Back/Spine/Pelvis: Back: no CVA tenderness Neuro: General: patient oriented x3 and moves all extremities Course Course Emergency Course: Patient received IV fluids had ultrasound performed of the right upper quadrant which shows no acute abdominal process or no cholelithiasis or coli cystitis. Labs reviewed showed no acute abnormalities everything within normal limits. Vital Signs Vital signs: Vital Signs Temperature 36.7 C 04/04/24 09:59 Pulse Rate 94 04/04/24 09:59 Respiratory Rate 20 04/04/24 09:59 Blood Pressure 118/78 04/04/24 09:59 Pulse Oximetry 97 04/04/24 09:59 Oxygen Delivery Room Air 04/04/24 09:59 Temperature 36.7 C 04/04/24 09:59 Pulse Rate 94 04/04/24 09:59 Respiratory Rate 20 04/04/24 09:59 Blood Pressure 118/78 04/04/24 09:59 Pulse Oximetry 97 04/04/24 09:59 Oxygen Delivery Room Air 04/04/24 09:59 MDM - Abdominal Pain Lab Data 04/04/24 10:19 04/04/24 10:19 Labs: Lab Results 04/04/24 Range/Units 10:19 WBC 10.4 (4.8-10.8) K/mm3 RBC 4.58 (4.20-5.40) M/mm3 Hgb 12.9 (12.0-15.0) g/dL Hct 39.7 (35.0-49.0) % MCV 86.7 (78.0-102.0) fL MCH 28.2 (27.0-31.0) pg MCHC 32.5 (32-36) g/dL RDW 13.7 (11.6-14.4) % Plt Count 371 (150-420) K/mm3 MPV 9.5 (9.2-11.8) fl Immature Gran
[2024-04-04 11:14] VITALS: BP 113/72; PULSE 80; RESP 20; TEMP 36.8; O2SAT 96
[2024-04-04 11:25] LABS: Lactic Acid Reflex 2.1 mmol/L (0.4-2.0)
[2024-04-04 12:17] LABS: Reflex Lactic Acid Yes or No Add Lactic
== END 2024-04-04 11:17 | disposition home or self-care (01) ==
PROVIDERS: Emergency Provider Emergency Medicine; PCP Family Medicine
DX: K52.9 Noninfective gastroenteritis and colitis, unspecified (principal); F17.210 Nicotine dependence, cigarettes, uncomplicated
CPT/HCPCS: 36415; 76705; 80053; 81001; 83605; 83690; 85025; 96360; 99284; J7030

== ENCOUNTER 2025-03-19 10:55 | Emergency (ER) | payer BC, MEDICAID, SELFPAY ==
[2025-03-19 10:56] VITALS: BP 150/76; PULSE 104; RESP 18; TEMP 36.6; O2SAT 98
--- NOTE | 2025-03-19 10:57 | ED_ITS ---
HPI - Nausea/Vomiting/Diarrhea General Chief complaint: Nausea/Vomiting/Diarrhea Stated complaint: vomitting Time Seen by Provider: 03/19/25 10:56 Source: patient Mode of arrival: ambulatory Limitations: no limitations History of Present Illness HPI Narrative: 30-year-old female who is 11 weeks presents to the ED with a 1 day history of -- multiple episodes of vomiting. She is unable to keep anything down. No abdominal pain. No diarrhea. Patient has had hyperemesis during her previous pregnancies. LMP 01/03/2025 Intrauterine confirmed by ultrasound at [facility]. MD elicited complaint: nausea and vomiting Onset (ago): hour(s) ( Started 9 hours ago) Description of vomiting: watery Associated nausea: Yes Associated abdominal pain: No Exacerbating factors: none Relieving factors: none Related Data Allergies Allergy/AdvReac Type Severity Reaction Status Date / Time No Known Allergies Allergy Verified 03/19/25 10:57 Review of Systems 2 Review of Systems: All systems reviewed & are unremarkable except as noted in HPI and below PMFSH Past Medical History Medical History Obesity, Class I, BMI 30-34.9 ALBERTO (generalized anxiety disorder) Major depression, recurrent Kidney stone 8 mm right nonobstructing stone Surgical History Surgical History History of dilation and curettage H/O: Previous section (~07/2018) deliv NOS-unsp Family History Family History Mother Heart disease CHF Fibromyalgia Diabetes mellitus Peptic ulcer disease Social History Social History Smoking status: Current some day smoker Tobacco type: cigarettes Second hand tobacco smoke exposure: No Additional smoking assessment comments: AT AGE 17 ONLY Alcohol intake: never Substance use: current Substance use type: marijuana Last use: 2 mos ago Living arrangements: with family Gender identity (if verbalized by the patient): Female Sexual Orientation (if Verbalized by the Patient): Straight or Heterosexual Spiritual care concerns: No Exam 2 Narrative: blood pressure 150/76. Pulse of 104. Afebrile. Const: General: no acute distress Nutritional Appearance: well nourished Orientation/consciousness: patient oriented x3 Limitations: no limitations HENMT: Head: normal to inspection Ears: external ears normal F marily/Nose/Sinus: Normal external nose present Face and sinus: normal facial exam Mouth: Yes Normal oral and palatal mucosa present Throat: posterior oropharynx normal Eyes: Conjunctivae: conjunctivae normal Cornea: corneas normal Pupils: E qual, round and reactive pupils present EOM: EOMs intact bilaterally D irect Ophthalmoscopy: no photophobia Neck: Neck: normal visual inspection, no lymphadenopathy and no meningeal signs Chest: Chest palpation & inspection: normal inspection of the chest Resp: Effort & Inspection: normal respiratory effort Auscultation: clear to auscultation bilaterally Cardio: Rate: regular rate Rhythm: regular rhythm GI: GI Palp: Yes Soft to palpation Auscultation: normal bowel sounds O ther: /rigidity/rebound. : General: Yes no CVA tenderness Back/Spine/Pelvis: Back: no CVA tenderness Skin: General skin exam: normal color Rashes: no rashes Wounds: no wounds Neuro: General: patient oriented x3, moves all extremities, no meningeal signs and no focal motor deficits Speech: normal speech Extrem: General: normal to inspection and no clubbing, cyanosis or edema Psych: Mental Status: mental status grossly normal Affect: normal affect Attitude: cooperative Course Course Emergency Course: nausea and vomiting of -- blood work is unremarkable. No improvement with Zofran. Will try Reglan. UA is noted to be positive for white cells, protein and leukocyte Estrace. Will send the urine for culture. Vital Signs Vital signs: Vital Signs Temperature 36.6 C 03/19/25 10:56 Pulse Rate 104 H 03/19/25 10:56 Respiratory Rate 18 03/19/25 10:56 Blood Pressure 150/76 H 03/19/25 10:56 Pulse Oximetry 98 03/19/25 10:56 Oxygen Delivery Room Air 03/19/25 10:56 Temperature 36.6 C 03/19/25 10:56 Pulse Rate 104 H 03/19/25 10:56 Respiratory Rate 18 03/19/25 10:56 Blood Pressure 150/76 H 03/19/25 10:56 Pulse Oximetry 98 03/19/25 10:56 Oxygen Delivery Room Air 03/19/25 10:56 MDM - Nausea/Vomiting/Diarrhea MDM Narrative Medical decision making narrative: Vomiting of Differential Diagnosis Differential diagnosis: Likely food poisoning Medical Records Attestation: I reviewed the patient's medical records. Lab Data Attestation: I reviewed the patient's lab results. 03/19/25 11:13 03/19/25 11:13 Labs: Lab Results 03/19/25 03/19/25 Range/Units 11:13 11:35 WBC 10.9 H (4.8-10.8) K/mm3 RBC 4.81 (4.20-5.40) M/mm3 Hgb 13.9 (12.0-15.0) g/dL Hct 42.4 (35.0-49.0) % MCV 88.1 (78.0-102.0) fL MCH 28.9 (27.0-31.0) pg MCHC 32.8 (32-36) g/dL RDW 14.2 (11.6-14.4) % Plt Count 441 H (150-420) K/mm3 MPV 9.7 (9.2-11.8) fl Immature Gran % (Auto) 0.4 H (0.0-0.0) % Neut % (Auto) 83.8 H (50.0-70.0) % Lymph % (Auto) 12.5 L (18.0-42.0) % Eddy % (Auto) 2.8 (2.0-11.0) % Eos % (Auto) 0.2 L (1.0-6.0) % Baso % (Auto) 0.3 (0.0-1.0) % Lymph # (Auto) 1.36 (1.10-4.50) K/mm3 Eddy # (Auto) 0.31 (0.10-0.90) K/mm3 Eos # (Auto) 0.02 (0.02-0.50) K/mm3 Baso # (Auto) 0.03 (0.00-0.10) K/mm3 Abs Immat Gran (auto) 0.04 H (0.00-0.00) K/mm3 Absolute Neuts (auto) 9.14 H (1.70-7.20) K/mm3 Absolute Nucleated RBC 0.00 (0.00-0.00) K/mm3 Nucleated RBC % 0.0 (0-0.0) % Sodium 140 (137-145) mmol/L Potassium 4.0 (3.4-5.0) mmol/L Chloride 107 (98-107) mmol/L Carbon Dioxide 22 (22-30) mmol/L Anion Gap 11 (4-12) mmol/L BUN 9 (7-17) mg/dL Creatinine 0.56 L (0.7-1.0) mg/dL Estim Creat Clear Calc 126 ml/min Estimated GFR > 60 (59 - ) Glucose 126 H (65-110) mg/dL Calculated Osmolality 290 (285-295) mOsm/kg Lactic Acid 1.9 (0.4-2.0) mmol/L Calcium 9.3 (8.4-10.2) mg/dL Total Bilirubin 0.6 (0.2-1.3) mg/dL AST 30 (14-36) U/L ALT 20 (6-35) U/L Alkaline Phosphatase 73 (38-126) U/L Total Protein 8.4 H (6.3-8.2) g/dL Albumin 4.9 (3.5-5.1) g/dL Lipase 57 (23-300) U/L Urine Color Yellow (Yellow) Urine Appearance Clear (Clear) Urine pH 6.0 (5.0-8.0) Ur Specific [place] >= 1.030 H (1.010-1.020) Urine Protein 2+ H (Negative) Urine Glucose (UA) Negative (Negative) Urine Ketones 3+ H (Negative) Ur Blood (Man) Trace-intact H (Negative) Urine Nitrate Negative (Negative) Urine Bilirubin Negative (Negative) Urine Urobilinogen 0.2 (0.2-1.0) mg/dL Leukocyte Esterase Rfl Trace H (Negative) CHARLENE/UL Urine RBC 0-2 (0-2) /hpf Urine WBC 6-10 H (0-3) /hpf Ur Squamous Epith Cells Many H (Few) /hpf Urine Bacteria 2+ H (None) /hpf Urine Mucus Heavy H /lpf Discharge Plan Discharge Clinical Impression: Vomiting affecting Patient Disposition: Home Condition: Stable Instructions: Antibiotic Form, Nausea and Vomiting in (ED) Patient Language: Serbian Prescriptions: New ondansetron HCl 4 mg tablet 4 mg PO Q8H PRN (Reason: nausea and vomiting) 4 Days Qty: 20 0RF No Action ondansetron 4 mg tablet,disintegrating 4 mg PO Q6H PRN (Reason: nausea and vomiting) Qty: 14 0RF sertraline 50 mg tablet See Rx Instructions .ROUTE .COMPLEX Qty: 180 2RF Dose Instruction: TAKE 1 TABLET BY MOUTH DAILY Rx Instructions: TAKE 1 TABLET BY MOUTH DAILY Follow-up/Referrals: Deshawn Earl DO [Primary Care Provider] - Time of Disposition: 12:15
[2025-03-19] MEDS: ONDANSETRON HCL ODT 4 MG TABLET PO (11:11)
[2025-03-19 11:20] LABS: Basophils Absolute Auto 0.03 K/mm3 (0.00-0.10); Basophils Percent Auto 0.3 % (0.0-1.0); Eosinophils Absolute Auto 0.02 K/mm3 (0.02-0.50); Eosinophils Percent Auto 0.2 % (1.0-6.0); Hematocrit 42.4 % (35.0-49.0); Hemoglobin 13.9 g/dL (12.0-15.0); Immature Granulocyte Absolute 0.04 K/mm3 (0.00-0.00); Immature Granulocyte Percent A 0.4 % (0.0-0.0); Lymphocytes Absolute Auto 1.36 K/mm3 (1.10-4.50); Lymphocytes Percent Auto 12.5 % (18.0-42.0); Mean Corpuscular HGB Conc 32.8 g/dL (32-36); Mean Corpuscular Hemoglobin 28.9 pg (27.0-31.0); Mean Corpuscular Volume 88.1 fL (78.0-102.0); Mean Platelet Volume 9.7 fl (9.2-11.8); Monocytes Absolute Auto 0.31 K/mm3 (0.10-0.90); Monocytes Percent Auto 2.8 % (2.0-11.0); Neutrophils Absolute Auto 9.14 K/mm3 (1.70-7.20); Neutrophils Percent Auto 83.8 % (50.0-70.0); Platelet Count Result 441 K/mm3 (150-420); Red Blood Count 4.81 M/mm3 (4.20-5.40); Red Cell Distribution Width 14.2 % (11.6-14.4); White Blood Count 10.9 K/mm3 (4.8-10.8)
[2025-03-19 11:33] LABS: Lactic Acid Reflex 1.9 mmol/L (0.4-2.0)
[2025-03-19 11:34] LABS: Alanine Aminotransferase 20 U/L (6-35); Albumin Level 4.9 g/dL (3.5-5.1); Alkaline Phosphatase 73 U/L (38-126); Anion Gap 11 mmol/L (4-12); Aspartate Amino Transferase 30 U/L (14-36); Bilirubin,Total 0.6 mg/dL (0.2-1.3); Blood Urea Nitrogen 9 mg/dL (7-17); Calcium 9.3 mg/dL (8.4-10.2); Carbon Dioxide 22 mmol/L (22-30); Chloride 107 mmol/L (98-107); Estimated CRCL calculation 126 ml/min; Estimated Glomerular Filt Rate > 60; Glucose 126 mg/dL (65-110); Osmolality Calculated 290 mOsm/kg (285-295); Sodium 140 mmol/L (137-145); Total Protein 8.4 g/dL (6.3-8.2)
[2025-03-19 11:46] LABS: Add Urine Microscopic? YES; Appearance Urine Clear (Clear); Bilirubin Urine Negative (Negative); Blood Urine Trace-intact (Negative); Color Urine Yellow (Yellow); Glucose Urine UA Negative (Negative); Ketones Urine 3+ (Negative); Leukocyte Esterase Ur Trace LEU/UL (Negative); Nitrate Urine Negative (Negative); Protein Urine 2+ (Negative); Specific Grav Ur >= 1.030 (1.010-1.020); Urobilinogen Urine 0.2 mg/dL (0.2-1.0)
[2025-03-19 11:57] LABS: Lipase 57 U/L (23-300)
[2025-03-19 11:58] LABS: Bacteria Urine 2+ /hpf; Mucus Urine Heavy /lpf; RBC Urine 0-2 /hpf (0-2); Squamous Epithelial Cell Urine Many /hpf (Few)
[2025-03-19 12:21] VITALS: BP 121/89; PULSE 91; RESP 16; TEMP 36.4; O2SAT 98
[2025-03-19] MEDS: METOCLOPRAMIDE HCL 10 MG TABLET PO (12:21)
== END 2025-03-19 12:26 | disposition home or self-care (01) ==
PROVIDERS: Emergency Provider Internal Medicine Critical Care Medicine; PCP Family Medicine
DX: O21.9 Vomiting of pregnancy, unspecified (principal); O99.331 Smoking (tobacco) complicating pregnancy, first trimester; F17.210 Nicotine dependence, cigarettes, uncomplicated; Z3A.11 11 weeks gestation of pregnancy
CPT/HCPCS: 36415; 80053; 81001; 83605; 83690; 85025; 99283; A9270